=== PATIENT | male | born 1960 | race Caucasian/White ===

== ENCOUNTER → 2017-02-18 | Outpatient (CLI) | payer MEDICAID ==
[2017-02-11 20:31] VITALS: BP 159/71
[2017-02-18 20:12] LABS: BILIRUBIN,URINE NEGATIVE (NEGATIVE); BLOOD/HEMOGLOBIN,URINE NEGATIVE (NEGATIVE); GLUCOSE, URINE NEGATIVE (NEGATIVE); KETONES,URINE NEGATIVE (NEGATIVE); LEUKOCYTE ESTERASE ,URINE 3+ (NEGATIVE); NITRITES,URINE NEGATIVE (NEGATIVE); PROTEIN,URINE 2+ (NEGATIVE); UROBILINOGEN,URINE NORMAL (NORMAL)
[2017-02-18 20:18] LABS: APPEARANCE,URINE HAZY (CLEAR); BACTERIA,URINE 1+ /HPF (NEGATIVE); COLOR,URINE YELLOW (YELLOW); RBC,URINE 0-2 /HPF (NEGATIVE); SQUAMOUS EPITHELIAL CELL,UR RARE /HPF (NEGATIVE)
[2017-02-18 20:25] LABS: CREATININE,URINE 67.27 mg/dL (40-278)
[2017-02-18 20:27] LABS: MICROALBUM/CREATININE RATIO,UR 320 mg/g cre (0-29); MICROALBUMIN,URINE 215.4 mg/L
== END ==
LOC: LTCLAB 19:47
PROVIDERS: ATTEND Internal Medicine
DX: N39.0 Urinary tract infection, site not specified (principal); R82.91 Other chromoabnormalities of urine; B96.5 Pseudomonas (aeruginosa) (mallei) (pseudomallei) as the cause of diseases classified elsewhere
CPT/HCPCS: 81001; 82043; 87086; 87088; 87186

== ENCOUNTER 2017-09-10 10:48 | Inpatient (IN) | payer MEDICAID ==
[2017-09-10 14:50] VITALS: BMI 38.0
[2017-09-10] MEDS ORDERED: NORCO 5/325 MG TAB PO PRN (15:06)
--- NOTE | 2017-09-10 15:17 | DR.H&P ---
H&P - History & Physical for Day of: H&P Date: 09/10/17 - Chief Complaint Chief Complaint: cough, sob, increased lower extremity edema - Allergies Allergies/Adverse Reactions: Allergies Allergy/AdvReac Type Severity Reaction Status Date / Time No Known Drug Allergies Allergy Verified 09/10/17 14:55 [NKDA] - History of Present Illness History of Present Illness: patient is a 57-year-old white male a direct admit from [facility] with complaints of increased shortness of breath cough and wheezing and severe lower extremity pitting edema. Pt had labs as well as chest x-ray prior to admission revealing increased vascular congestion and bronchitis. Patient has a history of diabetes, CHF, COPD, arthritis, renal insufficiency. Plan to admit for further evaluation of shortness of breath bronchitis and CHF exacerbation. We'll obtain admission labs, CT of the chest, ABG, respiratory therapy, IV antibiotics, supplemental O2 and strict I's and O' s will resume patient's home medications as well as blood sugar control. - Past Medical History Past Medical History: CHF, Diabetes, Gout, Hypertension, Renal Disease - Past Surgical History Surgical History: Unknown Additional Surgical History: REMOVAL OF RIGHT KIDNEY - Family History Family Medical History: Diabetes Mellitus, Hypertension - Social History Does patient currently use any type of tobacco product: No Have you used tobacco products in the last 12 months: No Type of Tobacco Use: Cigarettes How many years tobacco product used: 10 Does any household member use tobacco: No Alcohol Use: None Drug Use: None - Medications Home Medications: Brimonidine Tartrate [ALPHAGAN 0.2% (ophth) Soln *] 1 drop AFFEYE TID 09/10/17 [ History Confirmed 09/10/17] Buspirone HCl 10 mg [BUSPAR TAB 10 MG *] 1 tab PO TID 09/10/17 [History Confirmed 09/10/17] Cetirizine HCl [Zyrtec] 1 tab PO HS 09/10/17 [History Confirmed 09/10/17] Emollient [Aquaphor] 1 applic TOP HS 09/10/17 [History Confirmed 09/10/17] Levofloxacin [LEVAQUIN TAB 500 MG *] 1 tab PO DAILY 09/10/17 [History Confirmed 09/10/17] Minoxidil 5 mg PO BID 09/10/17 [History Confirmed 09/10/17] [facility] [Patient's Home Medication] 30 ml PO BID 09/10/17 [History Confirmed 09/10/17] Vitamin B Complex 1 tab PO DAILY 09/10/17 [History Confirmed 09/10/17] - Review of Systems Constitutional: Weakness Eyes: Conjunctivae Inflammation Respiratory: Cough, Shortness of Breath, Wheezing Cardiovascular: Edema Gastrointestinal: No Symptoms Reported Genitourinary: No Symptoms Reported Musculoskeletal: Back Pain, Leg Pain Skin: No Symptoms Reported Neurological: Weakness - Physical Exam Vital Signs: Blood Pressure [Right Arm] 159/71 Blood Pressure [Left Arm] 110/55 Blood Pressure 159/71 Oriented: Normal Eyes: Normal Ear: Normal Nose: Normal Throat: Normal Respiratory: Rhonchi Throughout, RLL Diminished, LLL Diminished Cardiovascular: Normal, Edema : Normal Auscultation: Bowel Sounds: Normal Palpation: Normal Skin: Normal Musculoskeletal: Back:Lumbar, Motor Deficit Affect: Depressed Speech Pattern: Clear, Appropriate - Assessment/Plan (1) SOB (shortness of breath) Status: Acute Plan: admission labs, CT of the chest, ABG, respiratory therapy, IV antibiotics , supplemental O2 and strict I's and O's will resume patient's home medications as well as blood sugar control. (2) Bronchitis Status: Acute (3) CHF (congestive heart failure) Qualifiers: Congestive heart failure type: unspecified congestive heart failure type Congestive heart failure chronicity: chronic Qualified Code(s): I50.9 - Heart failure, unspecified Status: Acute (4) Diabetes mellitus, type 2 Status: Chronic (5) GERD (gastroesophageal reflux disease) Status: Chronic (6) History of seizures Status: Chronic (7) Hypertension Status: Chronic
[2017-09-10 15:38] LABS: ABG BASE EXCESS 9.2 mmol/L (-2.0-2.0)
[2017-09-10 15:39] LABS: ABG HCO3 35.2 mmol/L (22-26)
[2017-09-10 15:39] LABS: BASOPHILS % (AUTO) 0.4 % (0.2-1.0); EOSINOPHILS # (AUTO) 0.4 x10^3/uL (0.0-0.2); EOSINOPHILS % (AUTO) 3.7 % (0.9-2.9); HEMATOCRIT 35.7 % (42.0-54.0); HEMOGLOBIN 11.6 g/dL (13.5-18.0); LYMPHOCYTES % (AUTO) 17.9 % (21.0-51.0); MEAN CORPUSCULAR HEMOGLOBIN 27.4 pg (27.0-34.0); MEAN CORPUSCULAR HGB CONC 32.6 g/dL (33.0-35.0); MEAN CORPUSCULAR VOLUME 84.2 fL (80.0-100.0); MEAN PLATELET VOLUME 7.9 fL (7.4-11.0); MONOCYTES # (AUTO) 0.7 x10^3/uL (0.3-0.8); MONOCYTES % (AUTO) 5.9 % (0.0-13.0); NEUTROPHILS # (AUTO) 8.2 x10^3/uL (2.2-4.8); NEUTROPHILS % (AUTO) 72.1 % (42.0-75.0); PLATELET COUNT 247 X10^3/uL (150.0-450.0); RED BLOOD COUNT 4.23 X10^6/uL (4.7-6.0); WHITE BLOOD COUNT 11.3 X10^3/uL (3.6-10.0)
[2017-09-10 15:41] LABS: BILIRUBIN,URINE NEGATIVE (NEGATIVE); BLOOD/HEMOGLOBIN,URINE 2+ (NEGATIVE); GLUCOSE, URINE 2+ (NEGATIVE); KETONES,URINE NEGATIVE (NEGATIVE); LEUKOCYTE ESTERASE ,URINE 3+ (NEGATIVE); NITRITES,URINE NEGATIVE (NEGATIVE); PROTEIN,URINE 3+ (NEGATIVE); UROBILINOGEN,URINE NORMAL (NORMAL)
[2017-09-10 15:48] LABS: APPEARANCE,URINE HAZY (CLEAR); BACTERIA,URINE 2+ /HPF (NEGATIVE); COLOR,URINE YELLOW (YELLOW); RBC,URINE 0-2 /HPF (NEGATIVE); SQUAMOUS EPITHELIAL CELL,UR NEGATIVE /HPF (NEGATIVE)
[2017-09-10 15:53] LABS: ALBUMIN 2.8 g/dL (3.4-5.0); CALCIUM 8.8 mg/dL (8.5-10.1); CARBON DIOXIDE 33.6 mmol/L (21-32); COR CA(FOR HYPOALB) 9.8 mg/dL (8.5-10.1); CREATININE 1.82 mg/dL (0.70-1.30); TOTAL PROTEIN 7.1 g/dL (6.4-8.2)
[2017-09-10] MEDS: NS 1000 ML 1,000 ML IV SCH (16:02)
[2017-09-10] MEDS: MAXIPIME 2 GM in NS 100 ML IV 100 ML IV SCH ×2 (16:02→21:37)
[2017-09-10] MEDS: DUONEB 0.5 MG/3 MG NEB SCH (16:50)
[2017-09-10] MEDS: COLACE CAP 100 MG PO SCH ×2 (17:34→21:23)
[2017-09-10] MEDS: MILK OF MAGNESIA PO SCH ×2 (17:34→21:19)
[2017-09-10] MEDS: COREG TAB 25 MG PO SCH (21:19)
[2017-09-10] MEDS: APRESOLINE TAB 25 MG PO SCH (21:20)
[2017-09-10] MEDS: MINOXIDIL PO SCH (21:20)
[2017-09-10] MEDS: PEPCID TAB 20 MG PO SCH (21:20)
[2017-09-10] MEDS: BUSPAR PO SCH (21:20)
[2017-09-10] MEDS: MAG-OX TAB PO SCH (21:21)
[2017-09-10] MEDS: LIPITOR TAB 20 MG PO SCH (21:22)
[2017-09-10] MEDS: REQUIP PO SCH (21:28)
[2017-09-10] MEDS: LEVEMIR SC SCH (21:38)
[2017-09-10] MEDS: AQUAPHOR TOP SCH (21:39)
[2017-09-10] MEDS: ALPHAGAN 0.2% OPHTH SOLN AFFEYE SCH (23:35)
[2017-09-11] MEDS: DUONEB 0.5 MG/3 MG NEB SCH ×4 (00:23→16:16)
[2017-09-11 05:29] LABS: BASOPHILS # (AUTO) 0.1 X10^3/uL (0.0-0.1); BASOPHILS % (AUTO) 0.6 % (0.2-1.0); EOSINOPHILS # (AUTO) 0.3 x10^3/uL (0.0-0.2); EOSINOPHILS % (AUTO) 2.9 % (0.9-2.9); HEMATOCRIT 34.9 % (42.0-54.0); HEMOGLOBIN 11.3 g/dL (13.5-18.0); LYMPHOCYTES # (AUTO) 2.2 X10^3/uL (1.3-2.9); LYMPHOCYTES % (AUTO) 20.2 % (21.0-51.0); MEAN CORPUSCULAR HEMOGLOBIN 27.2 pg (27.0-34.0); MEAN CORPUSCULAR HGB CONC 32.4 g/dL (33.0-35.0); MEAN CORPUSCULAR VOLUME 84.1 fL (80.0-100.0); MEAN PLATELET VOLUME 8.2 fL (7.4-11.0); MONOCYTES # (AUTO) 0.7 x10^3/uL (0.3-0.8); NEUTROPHILS # (AUTO) 7.7 x10^3/uL (2.2-4.8); NEUTROPHILS % (AUTO) 70.3 % (42.0-75.0); PLATELET COUNT 254 X10^3/uL (150.0-450.0); RED BLOOD COUNT 4.15 X10^6/uL (4.7-6.0); RED CELL DISTRIBUTION WIDTH 15.1 % (11.6-16.5)
[2017-09-11 05:55] LABS: ALBUMIN 2.6 g/dL (3.4-5.0); CALCIUM 8.5 mg/dL (8.5-10.1); CARBON DIOXIDE 32.4 mmol/L (21-32); COR CA(FOR HYPOALB) 9.6 mg/dL (8.5-10.1); CREATININE 1.71 mg/dL (0.70-1.30); TOTAL PROTEIN 6.6 g/dL (6.4-8.2)
[2017-09-11] MEDS: ALPHAGAN 0.2% OPHTH SOLN AFFEYE SCH ×3 (06:20→20:59)
[2017-09-11] MEDS: APRESOLINE TAB 25 MG PO SCH ×3 (06:22→20:59)
[2017-09-11] MEDS: BUSPAR PO SCH ×3 (06:22→20:59)
[2017-09-11] MEDS: MILK OF MAGNESIA PO SCH ×4 (09:26→20:43)
[2017-09-11] MEDS: REQUIP PO SCH ×2 (09:27→20:45)
[2017-09-11] MEDS: MINOXIDIL PO SCH ×2 (09:27→20:46)
[2017-09-11] MEDS: MAG-OX TAB PO SCH ×2 (09:28→20:43)
[2017-09-11] MEDS: COLACE CAP 100 MG PO SCH ×2 (09:28→21:00)
[2017-09-11] MEDS: PEPCID TAB 20 MG PO SCH ×2 (09:28→20:52)
[2017-09-11] MEDS: COREG TAB 25 MG PO SCH ×2 (09:28→20:43)
[2017-09-11] MEDS: CARDIZEM CD 360 MG PO SCH (09:30)
[2017-09-11] MEDS: LEVEMIR SC SCH ×2 (09:36→20:47)
[2017-09-11] MEDS: MAXIPIME 2 GM in NS 100 ML IV 100 ML IV SCH ×2 (10:19→21:41)
--- NOTE | 2017-09-11 14:19 | CT ---
Indication: Shortness of breath . Exam: CT chest without contrast. Comparison: 03/09/2016 Technique: Axial spiral images were obtained from the level above the clavicles through the adrenals without contrast and reconstructed in 5 mm intervals with coronal and sagittal multiplanar reconstruc tions. Automated does control was utilized. Findings: The thyroid gland is mildly enlarged with a hypodensity in the left lobe measuring 3.8 cm. This measured 1.7 cm previously and is causing some mild mass effect along the left side of the trach ea which is unchanged. The aorta is normal caliber. The pulmonary arteries are prominent centrally ar e more prominent . There are small lymph nodes in the AP window and pretracheal region which are less prominent. There is a 2.3 cm right subcarinal lymph node which measures which measured 2.8 cm previo usly. There are some small lymph nodes along the hilar regions bilaterally which are not as well visu alized but appear slightly less prominent . There is mild asymmetric elevation of the right hemidiaph ragm which is unchanged. There is some hazy right basilar opacity which is less prominent . The adren als are normal. There is a hypodense cyst along the upper pole left kidney measuring 5.4 cm which jewel sures water density. The right kidney has been removed. The adrenals are normal. There is a 5 mm subp leural nodule left lower lobe on image 40 of series 4 which is unchanged. There is a 2 mm pleural-bas ed nodule right upper lobe anteriorly which is less prominent . There are a couple of small 4-5 mm no dules in the right middle lobe which are unchanged or better visualized . There is mild pleural thick ening seen laterally and along the right chest which is unchanged. The bones are intact. Impression: Enlarging left thyroid nodule or mass. Recommend ultrasound follow-up. Prominent asymmetric elevation of the right hemidiaphragm with resolving subsegmental infiltrate or a telectasis vs residual scarring scattered along the right lung base with mild pleural thickening late rally which is unchanged . There has been interval resolution of the previously seen left basilar inf iltrate and effusion. Small pulmonary nodules scattered in both lungs which are unchanged or better visualized . Recommend short-term follow-up to assure stability . Slowly resolving mediastinal and hilar adenopathy . Prominent central pulmonary arteries which has increased and may represent worsening pulmonary artery hypertension Reported By:
[2017-09-11] MEDS: NS 1000 ML 1,000 ML IV SCH (15:00)
[2017-09-11] MEDS: LIPITOR TAB 20 MG PO SCH (20:43)
[2017-09-11] MEDS: AQUAPHOR TOP SCH (20:54)
[2017-09-11] MEDS ORDERED: NS 100 ML IV 100 ML IV ONE (21:36)
[2017-09-12] MEDS: DUONEB 0.5 MG/3 MG NEB SCH ×4 (01:09→13:39)
[2017-09-12] MEDS: APRESOLINE TAB 25 MG PO SCH ×2 (05:38→14:06)
[2017-09-12] MEDS: BUSPAR PO SCH ×2 (05:38→14:06)
[2017-09-12] MEDS: ALPHAGAN 0.2% OPHTH SOLN AFFEYE SCH ×2 (05:39→14:12)
[2017-09-12 06:18] LABS: BASOPHILS # (AUTO) 0.1 X10^3/uL (0.0-0.1); BASOPHILS % (AUTO) 0.8 % (0.2-1.0); EOSINOPHILS # (AUTO) 0.3 x10^3/uL (0.0-0.2); HEMATOCRIT 33.7 % (42.0-54.0); HEMOGLOBIN 11.1 g/dL (13.5-18.0); LYMPHOCYTES # (AUTO) 2.1 X10^3/uL (1.3-2.9); LYMPHOCYTES % (AUTO) 19.2 % (21.0-51.0); MEAN CORPUSCULAR HEMOGLOBIN 27.7 pg (27.0-34.0); MEAN CORPUSCULAR HGB CONC 32.9 g/dL (33.0-35.0); MONOCYTES # (AUTO) 0.6 x10^3/uL (0.3-0.8); MONOCYTES % (AUTO) 5.7 % (0.0-13.0); NEUTROPHILS # (AUTO) 7.8 x10^3/uL (2.2-4.8); NEUTROPHILS % (AUTO) 71.3 % (42.0-75.0); PLATELET COUNT 237 X10^3/uL (150.0-450.0); RED BLOOD COUNT 4.01 X10^6/uL (4.7-6.0); RED CELL DISTRIBUTION WIDTH 15.1 % (11.6-16.5)
[2017-09-12 06:41] LABS: ALBUMIN 2.4 g/dL (3.4-5.0); CALCIUM 8.2 mg/dL (8.5-10.1); CARBON DIOXIDE 31.6 mmol/L (21-32); COR CA(FOR HYPOALB) 9.5 mg/dL (8.5-10.1); CREATININE 1.65 mg/dL (0.70-1.30); TOTAL PROTEIN 6.4 g/dL (6.4-8.2)
[2017-09-12] MEDS: MILK OF MAGNESIA PO SCH ×2 (09:24→09:34)
[2017-09-12] MEDS: COREG TAB 25 MG PO SCH (09:24)
[2017-09-12] MEDS: CARDIZEM CD 360 MG PO SCH (09:25)
[2017-09-12] MEDS: PEPCID TAB 20 MG PO SCH (09:27)
[2017-09-12] MEDS: MINOXIDIL PO SCH (09:27)
[2017-09-12] MEDS: REQUIP PO SCH (09:28)
[2017-09-12] MEDS: COLACE CAP 100 MG PO SCH (09:28)
[2017-09-12] MEDS: MAG-OX TAB PO SCH (09:28)
[2017-09-12] MEDS: LEVEMIR SC SCH (09:29)
[2017-09-12] MEDS: MAXIPIME 2 GM in NS 100 ML IV 100 ML IV SCH (11:06)
[2017-09-12] MEDS: NS 1000 ML 1,000 ML IV SCH (11:10)
[2017-09-12] MEDS ORDERED: INVANZ INJ 1 GM VIAL 1 GM in NS 50 ML IV 50 ML IV ONE (14:13)
[2017-09-12] MEDS ORDERED: INVANZ INJ 1 GM VIAL ONE (14:15)
[2017-09-12] MEDS ORDERED: NS 100 ML IV 100 ML IV ONE (14:16)
[2017-09-12 17:49] VITALS: BP 156/74
== END 2017-09-12 16:30 | DRG 202 ==
LOC: UNDOADMOB 10:48 → MED/SURG 10:48 → OBSVTOIN 13:13 → INTOOBSV 13:13 → MED/SURG 13:13
PROVIDERS: ADMIT Internal Medicine; ATTEND Internal Medicine
DX: J20.8 Acute bronchitis due to other specified organisms (principal); R06.02 Shortness of breath; I50.9 Heart failure, unspecified; R60.0 Localized edema; E11.65 Type 2 diabetes mellitus with hyperglycemia; J44.9 Chronic obstructive pulmonary disease, unspecified; I10 Essential (primary) hypertension; G40.802 Other epilepsy, not intractable, without status epilepticus; N18.9 Chronic kidney disease, unspecified; B96.29 Other Escherichia coli [E. coli] as the cause of diseases classified elsewhere
CPT/HCPCS: 36415; 36600; 71010; 71020; 71250; 80053; 81001; 82803; 84153; 85025; 87040; 87086; 87088; 87186; 93005; 93010; 94640; 96360; 96365; 96372; 96374; A4222; 1956; G0378; J0692; J1335; J7620

== ENCOUNTER 2017-12-27 11:44 | Inpatient (IN) | payer MEDICAID ==
[2017-12-27] MEDS ORDERED: ROBITUSSIN DM PO PRN (13:12)
[2017-12-27] MEDS ORDERED: HumuLIN R SUBCUT PRN (13:12)
--- NOTE | 2017-12-27 13:17 | DR.H&P ---
H&P - History & Physical for Day of: H&P Date: 12/27/17 - Chief Complaint Chief Complaint: SOB,CCC, WHEEZING - Allergies Allergies/Adverse Reactions: Allergies Allergy/AdvReac Type Severity Reaction Status Date / Time No Known Drug Allergies Allergy Verified 12/18/17 09:13 [NKDA] - History of Present Illness History of Present Illness: 57 WM DIRECT ADMIT FROM [facility] WITH CO SOB, ACUTE BRONCHITIS AND UTI. PT HAS BEEN ON IV ATBX FOR A WEEK. PT USING JET NEBS AND SUPPLEMENTAL O2 WITHOUT IMPROVEMENT. PT HAS CRF, DM, HTN, OA, CHRONIC UTIS. PT ADMITTED FOR EVALAUTION OF SOB AND TREATMENT OF BRONCHITIS AND UTI. PLAN TO FOLLOW PNEUMONIA PATHWAY, RESUME HOME MEDS - Past Medical History Past Medical History: Arthritis, CHF, Diabetes, Gout, Hypertension, Renal Disease - Past Surgical History Surgical History: Unknown Additional Surgical History: REMOVAL OF RIGHT KIDNEY - Family History Family Medical History: Diabetes Mellitus, Hypertension - Social History Does patient currently use any type of tobacco product: No Have you used tobacco products in the last 12 months: No Type of Tobacco Use: None Does any household member use tobacco: No Alcohol Use: None Drug Use: None - Review of Systems Constitutional: Weakness Eyes: No Symptoms Reported Respiratory: Cough, Shortness of Breath, Wheezing Cardiovascular: No Symptoms Reported, Edema Gastrointestinal: No Symptoms Reported Genitourinary: Frequency Musculoskeletal: Back Pain, Leg Pain Skin: No Symptoms Reported Neurological: Weakness - Physical Exam Vital Signs: Blood Pressure [Right Arm] 156/74 Blood Pressure [Left Arm] 110/55 Blood Pressure 156/74 Oriented: Person Eyes: Normal Ear: Normal Nose: Normal Throat: Normal Respiratory: Rhonchi Throughout, Wheezes Throughout Cardiovascular: Normal, Edema : Normal Auscultation: Bowel Sounds: Normal Palpation: Normal Skin: Normal Musculoskeletal: Back:Lumbar, Motor Deficit Psychiatric: Anxiety, Depression Affect: Depressed Speech Pattern: Clear, Appropriate - Assessment/Plan (1) SOB (shortness of breath) Status: Acute Plan: ADMIT, EKG CXR ABG ON ADMISSION. SSI BS COVERAGE. O2, RESP CONSULT, PNEUMONIA PATHWAY. BLOOD, URINE AND SPUTUM CULTURES. IV ATBX THERAPY, RESUME HOME MEDS. BP MONITORING, I & OS (2) Bronchitis Status: Acute (3) CRF (chronic renal failure) Status: Acute (4) CHF (congestive heart failure) Qualifiers: Qualified Code(s): I50.9 - Heart failure, unspecified Status: Acute (5) Generalized weakness Status: Acute (6) Diabetes mellitus, type 2 Status: Chronic (7) GERD (gastroesophageal reflux disease) Status: Chronic (8) Hypertension Status: Chronic
[2017-12-27] MEDS ORDERED: NS 1/2 1000 ML IV 1,000 ML IV ONE (13:54)
[2017-12-27] MEDS ORDERED: NS 1/2 1000 ML IV 1,000 ML IV SCH (14:00)
[2017-12-27 14:39] LABS: ABG BASE EXCESS 12.1 mmol/L (-2.0-2.0)
[2017-12-27 14:40] LABS: ABG ALLEN TEST POS
[2017-12-27] MEDS ORDERED: SALINE 3% 15 ML NEB TX NEB ONE (14:47)
--- NOTE | 2017-12-27 14:53 | RAD ---
Chest, AP portable Indication: Shortness of breath Comparison: 09/14/2017 Findings: Cardiac silhouette enlargement is unchanged. There are diffuse asymmetric interstitial and airspace opacities, most severe within left upper lobe. No large pleural effusion. Impression: Findings most compatible with multifocal pneumonia, worst in the left upper lobe, although asymmetric edema is possible in the correct clinical setting. Correlation and radiographic follow-up to resolut ion recommended. Reported By:
[2017-12-27 15:25] LABS: BASOPHILS # (AUTO) 0.1 X10^3/uL (0.0-0.1); EOSINOPHILS # (AUTO) 0.4 x10^3/uL (0.0-0.2); EOSINOPHILS % (AUTO) 3.6 % (0.9-2.9); HEMATOCRIT 35.1 % (42.0-54.0); HEMOGLOBIN 11.3 g/dL (13.5-18.0); LYMPHOCYTES # (AUTO) 1.5 X10^3/uL (1.3-2.9); LYMPHOCYTES % (AUTO) 14.8 % (21.0-51.0); MEAN CORPUSCULAR HEMOGLOBIN 27.1 pg (27.0-34.0); MEAN CORPUSCULAR HGB CONC 32.2 g/dL (33.0-35.0); MEAN CORPUSCULAR VOLUME 84.1 fL (80.0-100.0); MEAN PLATELET VOLUME 7.3 fL (7.4-11.0); MONOCYTES # (AUTO) 0.7 x10^3/uL (0.3-0.8); NEUTROPHILS # (AUTO) 7.3 x10^3/uL (2.2-4.8); NEUTROPHILS % (AUTO) 73.6 % (42.0-75.0); PLATELET COUNT 247 X10^3/uL (150.0-450.0); RED BLOOD COUNT 4.17 X10^6/uL (4.7-6.0); RED CELL DISTRIBUTION WIDTH 15.4 % (11.6-16.5)
[2017-12-27] MEDS: MERREM VIAL 1 GM in NS 100 ML IV + SPIKE MINIBAG* 100 ML IV SCH ×2 (15:27→21:00)
[2017-12-27 15:33] LABS: BLOOD UREA NITROGEN 31 mg/dL (7-18); CALCIUM 8.8 mg/dL (8.5-10.1); CHLORIDE 107 mmol/L (98-107); CREATININE 1.89 mg/dL (0.70-1.30); SODIUM 146 mmol/L (136-145); eGFR BLACK RACES 47 (>60); eGFR NON BLACK RACES 39 (>60)
[2017-12-27 15:35] LABS: ALANINE AMINOTRANSFERASE 11 Units/L (12-78); ALBUMIN 2.9 g/dL (3.4-5.0); ALKALINE PHOSPHATASE 144 Units/L (46-116); ASPARTATE AMINO TRANSFERASE 17 Units/L (15-37); COR CA(FOR HYPOALB) 9.7 mg/dL (8.5-10.1); TOTAL PROTEIN 7.7 g/dL (6.4-8.2)
[2017-12-27] MEDS ORDERED: D50W ABBOJECT SYR ONE (15:42)
[2017-12-27] MEDS ORDERED: D50W ABBOJECT SYR IV ONE (15:43)
[2017-12-27] MEDS: ZITHROMAX INJ 500 MG VIAL 500 MG in NS 250 ML IV 250 ML IV SCH (16:14)
[2017-12-27] MEDS ORDERED: DUONEB 0.5 MG/3 MG NEB SCH (17:00)
[2017-12-27] MEDS ORDERED: LASIX IVP ONE (17:52)
[2017-12-27] MEDS: D5 1/2 NS 1000 ML 1,000 ML IV SCH (18:20)
[2017-12-27] MEDS: DUONEB 0.5 MG/3 MG NEB SCH (20:57)
[2017-12-27] MEDS: SNACK - Diabetic Appropriate PO SCH (21:00)
[2017-12-27 21:21] LABS: BILIRUBIN,URINE NEGATIVE (NEGATIVE); BLOOD/HEMOGLOBIN,URINE NEGATIVE (NEGATIVE); GLUCOSE, URINE NEGATIVE (NEGATIVE); KETONES,URINE NEGATIVE (NEGATIVE); LEUKOCYTE ESTERASE ,URINE 3+ (NEGATIVE); NITRITES,URINE NEGATIVE (NEGATIVE); PROTEIN,URINE 3+ (NEGATIVE); UROBILINOGEN,URINE NORMAL (NORMAL)
[2017-12-27 21:22] LABS: APPEARANCE,URINE HAZY (CLEAR); COLOR,URINE YELLOW (YELLOW)
[2017-12-27 21:31] LABS: BACTERIA,URINE TRACE /HPF (NEGATIVE); MUCUS,URINE FEW /HPF (NEGATIVE); SQUAMOUS EPITHELIAL CELL,UR RARE /HPF (NEGATIVE)
[2017-12-28] MEDS: DUONEB 0.5 MG/3 MG NEB SCH ×6 (01:13→20:14)
[2017-12-28] MEDS: MERREM VIAL 1 GM in NS 100 ML IV + SPIKE MINIBAG* 100 ML IV SCH ×3 (05:16→20:59)
[2017-12-28 06:00] LABS: BASOPHILS # (AUTO) 0.1 X10^3/uL (0.0-0.1); BASOPHILS % (AUTO) 0.9 % (0.2-1.0); EOSINOPHILS # (AUTO) 0.3 x10^3/uL (0.0-0.2); EOSINOPHILS % (AUTO) 2.4 % (0.9-2.9); HEMATOCRIT 34.9 % (42.0-54.0); HEMOGLOBIN 11.1 g/dL (13.5-18.0); LYMPHOCYTES # (AUTO) 1.7 X10^3/uL (1.3-2.9); LYMPHOCYTES % (AUTO) 14.2 % (21.0-51.0); MEAN CORPUSCULAR HEMOGLOBIN 27.1 pg (27.0-34.0); MEAN CORPUSCULAR VOLUME 84.7 fL (80.0-100.0); MEAN PLATELET VOLUME 7.7 fL (7.4-11.0); MONOCYTES # (AUTO) 0.8 x10^3/uL (0.3-0.8); MONOCYTES % (AUTO) 6.6 % (0.0-13.0); NEUTROPHILS # (AUTO) 9.1 x10^3/uL (2.2-4.8); NEUTROPHILS % (AUTO) 75.9 % (42.0-75.0); PLATELET COUNT 259 X10^3/uL (150.0-450.0); RED BLOOD COUNT 4.12 X10^6/uL (4.7-6.0); RED CELL DISTRIBUTION WIDTH 15.5 % (11.6-16.5)
[2017-12-28 06:40] LABS: ALBUMIN 2.8 g/dL (3.4-5.0); CALCIUM 8.7 mg/dL (8.5-10.1); CARBON DIOXIDE 32.7 mmol/L (21-32); COR CA(FOR HYPOALB) 9.7 mg/dL (8.5-10.1); CREATININE 2.03 mg/dL (0.70-1.30); TOTAL PROTEIN 7.5 g/dL (6.4-8.2)
[2017-12-28] MEDS: ZITHROMAX INJ 500 MG VIAL 500 MG in NS 250 ML IV 250 ML IV SCH (08:18)
[2017-12-28] MEDS ORDERED: NS 100 ML IV + SPIKE MINIBAG* 0 ML IV ONE (13:18)
[2017-12-28] MEDS ORDERED: MERREM VIAL ONE ×2 (13:19→20:37)
[2017-12-28] MEDS ORDERED: NS 100 ML IV 100 ML IV ONE ×2 (13:19→20:37)
--- NOTE | 2017-12-28 14:33 | PCM.PROG ---
Progress Note - Progress Note for Day of Date: 12/28/17 - Subjective Subjective: PT 57 WM RESIDENT FOR [facility] ADMITTED ONE DAY AGO WITH SOB, PT CXR REVEALED MULTI-FOCAL PNEUMONIA. PT CONTINUE TO CO NAUSEA THIS AM. PT ON IV ATBX, RESP THERAPY, O2, PT ENCOURAGED TO PRODUCE AND SPUTUM SPECIMEN. - Past Medical Family Social History Past Med/Fam/Surg Hx: No changes since H&P Allergies: Allergies No Known Drug Allergies [NKDA] Allergy (Verified 12/18/17 09:13) - Review of Systems ROS: No change since H&P - Vital Signs and I&O's Vital Signs: Temperature 98.9 F Pulse Rate [Apical] 76 Pulse Rate 64 Respiratory Rate 20 Blood Pressure [Right Arm] 128/68 Blood Pressure [Left Arm] 110/55 Blood Pressure 156/74 O2 Sat by Pulse Oximetry 95 Intake and Output: Intake & Output 12/26/17 12/27/17 12/28/17 12/29/17 11:59 11:59 11:59 11:59 Intake Total 780 Output Total 1740 Balance -960 - Physical Exam Oriented: Person Eyes: Normal Ear: Normal Nose: Normal Throat: Normal Cardiovascular: Normal, Edema : Normal Auscultation: Bowel Sounds: Normal Palpation: Normal Tenderness: Normal Skin: Normal Musculoskeletal: Back:Lumbar, Motor Deficit Psychiatric: Anxiety, Depression Affect: Depressed Speech Pattern: Clear, Appropriate - Laboratory and Diagnostics Result Diagrams: 12/28/17 04:55 12/28/17 04:55 Labs: 12/27/17 21:10 Urine,Clean Catch Urine Culture - Preliminary Laboratory WBC 12.0 X10^3/uL (3.6-10.0) H 12/28/17 04:55 RBC 4.12 X10^6/uL (4.7-6.0) L 12/28/17 04:55 Hgb 11.1 g/dL (13.5-18.0) L 12/28/17 04:55 Hct 34.9 % (42.0-54.0) L 12/28/17 04:55 MCV 84.7 fL (80.0-100.0) 12/28/17 04:55 MCH 27.1 pg (27.0-34.0) 12/28/17 04:55 MCHC 32.0 g/dL (33.0-35.0) L 12/28/17 04:55 RDW 15.5 % (11.6-16.5) 12/28/17 04:55 Plt Count 259 X10^3/uL (150.0-450.0) 12/28/17 04:55 MPV 7.7 fL (7.4-11.0) 12/28/17 04:55 Neut % (Auto) 75.9 % (42.0-75.0) H 12/28/17 04:55 Lymph % (Auto) 14.2 % (21.0-51.0) L 12/28/17 04:55 Bennett % (Auto) 6.6 % (0.0-13.0) 12/28/17 04:55 Eos % (Auto) 2.4 % (0.9-2.9) 12/28/17 04:55 Baso % (Auto) 0.9 % (0.2-1.0) 12/28/17 04:55 Neut # (Auto) 9.1 x10^3/uL (2.2-4.8) H 12/28/17 04:55 Lymph # (Auto) 1.7 X10^3/uL (1.3-2.9) 12/28/17 04:55 Bennett # (Auto) 0.8 x10^3/uL (0.3-0.8) 12/28/17 04:55 Eos # (Auto) 0.3 x10^3/uL (0.0-0.2) H 12/28/17 04:55 Baso # (Auto) 0.1 X10^3/uL (0.0-0.1) 12/28/17 04:55 Absolute Nucleated RBC 0.0 /100WBC 12/28/17 04:55 Sample Site Right radial 12/27/17 14:27 ABG pH 7.340 (7.35-7.45) L 12/27/17 14:27 ABG pCO2 76.0 mmHg (35.0-45.0) H* 12/27/17 14:27 ABG pO2 85.0 mmHg (80.0-100.0) 12/27/17 14:27 ABG HCO3 41.0 mmol/L (22-26) H* 12/27/17 14:27 ABG O2 Saturation 96.0 % (90-100) 12/27/17 14:27 ABG Base Excess 12.1 mmol/L (-2.0-2.0) H 12/27/17 14:27 Ishmael Test Pos 12/27/17 14:27 A-a Gradient 20.0 mmHg 12/27/17 14:27 FiO2 28.000 12/27/17 14:27 Blood Gas Comments Michelle well aw 12/27/17 14:27 Sodium 145 mmol/L (136-145) 12/28/17 04:55 Corrected Sodium 145 mmol/L (136-145) 12/28/17 04:55 Potassium 4.2 mmol/L (3.5-5.1) 12/28/17 04:55 Chloride 106 mmol/L (98-107) 12/28/17 04:55 Carbon Dioxide 32.7 mmol/L (21-32) H 12/28/17 04:55 BUN 34 mg/dL (7-18) H 12/28/17 04:55 Creatinine 2.03 mg/dL (0.70-1.30) H 12/28/17 04:55 Est GFR (MDRD) Af Amer 43 (>60) L 12/28/17 04:55 Est GFR (MDRD) Non-Af 36 (>60) L 12/28/17 04:55 Glucose 117 mg/dL (65-99) H 12/28/17 04:55 POC Glucose (mg/dL) 167 mg/dL (65-99) H 12/28/17 11:19 Calcium 8.7 mg/dL (8.5-10.1) 12/28/17 04:55 Corrected Calcium 9.7 mg/dL (8.5-10.1) 12/28/17 04:55 Total Bilirubin 0.40 mg/dL (0.2-1.0) 12/28/17 04:55 AST 15 Units/L (15-37) 12/28/17 04:55 ALT 19 Units/L (12-78) 12/28/17 04:55 Alkaline Phosphatase 139 Units/L (46-116) H 12/28/17 04:55 Total Protein 7.5 g/dL (6.4-8.2) 12/28/17 04:55 Albumin 2.8 g/dL (3.4-5.0) L 12/28/17 04:55 Globulin 4.7 g/dL (2.5-4.5) H 12/28/17 04:55 Albumin/Globulin Ratio 0.6 Ratio (1.1-2.1) L 12/28/17 04:55 Specimen Type Clean catch urine 12/27/17 21:10 Urine Color Yellow (YELLOW) 12/27/17 21:10 Urine Appearance Hazy (CLEAR) 12/27/17 21:10 Urine pH 5.0 (5.0 - 8.0) 12/27/17 21:10 Ur Specific [place] 1.010 (1.000-1.030) 12/27/17 21:10 Urine Protein 3+ (NEGATIVE) 12/27/17 21:10 Urine Glucose (UA) Negative (NEGATIVE) 12/27/17 21:10 Urine Ketones Negative (NEGATIVE) 12/27/17 21:10 Urine Occult Blood Negative (NEGATIVE) 12/27/17 21:10 Urine Nitrite Negative (NEGATIVE) 12/27/17 21:10 Urine Bilirubin Negative (NEGATIVE) 12/27/17 21:10 Urine Urobilinogen Normal (NORMAL) 12/27/17 21:10 Ur Leukocyte Esterase 3+ (NEGATIVE) 12/27/17 21:10 Urine RBC 3-5 /HPF (NONE SEEN) 12/27/17 21:10 Urine WBC 20-30 /HPF (NONE SEEN) 12/27/17 21:10 Ur Squamous Epith Cells Rare /HPF (NEGATIVE) 12/27/17 21:10 Urine Bacteria Trace /HPF (NEGATIVE) 12/27/17 21:10 Urine Mucus Few /HPF (NEGATIVE) 12/27/17 21:10 Ur Culture Indicated? Yes/culture set up 12/27/17 21:10 - Plan (1) SOB (shortness of breath) Status: Acute Plan: EKG CXR ABG ON ADMISSION,. SSI BS COVERAGE. O2, RESP CONSULT, PNEUMONIA PATHWAY. BLOOD, URINE AND SPUTUM CULTURES PENDING. IV ATBX THERAPY,. BP MONITORING, I & OS (2) Bronchitis Status: Acute (3) CRF (chronic renal failure) Status: Acute (4) CHF (congestive heart failure) Status: Acute Qualifiers: Qualified Code(s): I50.9 - Heart failure, unspecified (5) Generalized weakness Status: Acute (6) Diabetes mellitus, type 2 Status: Chronic (7) GERD (gastroesophageal reflux disease) Status: Chronic (8) Hypertension Status: Chronic
[2017-12-28] MEDS: D5 1/2 NS 1000 ML 1,000 ML IV SCH (20:51)
[2017-12-28] MEDS: SNACK - Diabetic Appropriate PO SCH (20:51)
[2017-12-28] MEDS: NYSTATIN POWDER TOP PRN (23:00)
[2017-12-29] MEDS: DUONEB 0.5 MG/3 MG NEB SCH ×6 (01:39→20:25)
[2017-12-29] MEDS ORDERED: MERREM VIAL ONE (05:35)
[2017-12-29] MEDS ORDERED: NS 100 ML IV 100 ML IV ONE (05:35)
[2017-12-29] MEDS: MERREM VIAL 1 GM in NS 100 ML IV + SPIKE MINIBAG* 100 ML IV SCH ×3 (05:40→21:24)
[2017-12-29 05:53] LABS: ABG BASE EXCESS 10.8 mmol/L (-2.0-2.0)
[2017-12-29 05:55] LABS: ABG ALLEN TEST POS; ABG HCO3 39.2 mmol/L (22-26)
[2017-12-29 06:03] LABS: BASOPHILS # (AUTO) 0.1 X10^3/uL (0.0-0.1); BASOPHILS % (AUTO) 0.8 % (0.2-1.0); EOSINOPHILS # (AUTO) 0.2 x10^3/uL (0.0-0.2); EOSINOPHILS % (AUTO) 2.4 % (0.9-2.9); HEMATOCRIT 34.8 % (42.0-54.0); HEMOGLOBIN 11.3 g/dL (13.5-18.0); LYMPHOCYTES # (AUTO) 2.1 X10^3/uL (1.3-2.9); LYMPHOCYTES % (AUTO) 20.4 % (21.0-51.0); MEAN CORPUSCULAR HEMOGLOBIN 27.3 pg (27.0-34.0); MEAN CORPUSCULAR HGB CONC 32.4 g/dL (33.0-35.0); MEAN CORPUSCULAR VOLUME 84.2 fL (80.0-100.0); MEAN PLATELET VOLUME 7.7 fL (7.4-11.0); MONOCYTES # (AUTO) 0.7 x10^3/uL (0.3-0.8); MONOCYTES % (AUTO) 6.9 % (0.0-13.0); NEUTROPHILS # (AUTO) 7.1 x10^3/uL (2.2-4.8); NEUTROPHILS % (AUTO) 69.5 % (42.0-75.0); PLATELET COUNT 242 X10^3/uL (150.0-450.0); RED BLOOD COUNT 4.13 X10^6/uL (4.7-6.0); RED CELL DISTRIBUTION WIDTH 15.1 % (11.6-16.5); WHITE BLOOD COUNT 10.2 X10^3/uL (3.6-10.0)
[2017-12-29 06:36] LABS: CREATININE 1.7 mg/dL (0.70-1.30)
[2017-12-29] MEDS: ZITHROMAX INJ 500 MG VIAL 500 MG in NS 250 ML IV 250 ML IV SCH (07:59)
[2017-12-29] MEDS ORDERED: ZOFRAN INJ 4 MG VIAL IVP PRN (08:52)
[2017-12-29 10:53] VITALS: BMI 40.2
[2017-12-29 12:20] LABS: ALBUMIN 2.7 g/dL (3.4-5.0); TOTAL PROTEIN 7.5 g/dL (6.4-8.2)
--- NOTE | 2017-12-29 13:39 | PCM.PROG ---
Progress Note - Progress Note for Day of Date: 12/29/17 - Subjective Subjective: PT 57 WM RESIDENT FOR [facility] ADMITTED ONE DAY AGO WITH SOB, PT CXR REVEALED MULTI-FOCAL PNEUMONIA. PT HAS IMPROVING RESP DISTRESS, RESTING THIS AM, IMPROVING APPETITE. CO CONTINUED CHEST CONGESTION AND COUGH THIS AM. PT ON IV ATBX, RESP THERAPY, O2, PT ENCOURAGED TO PRODUCE AND SPUTUM SPECIMEN. - Past Medical Family Social History Past Med/Fam/Surg Hx: No changes since H&P Allergies: Allergies No Known Drug Allergies [NKDA] Allergy (Verified 12/18/17 09:13) - Review of Systems ROS: No change since H&P - Vital Signs and I&O's Vital Signs: Temperature 99.0 F Pulse Rate [Apical] 78 Pulse Rate 61 Respiratory Rate 19 Blood Pressure [Right Arm] 156/67 Blood Pressure [Left Arm] 110/55 Blood Pressure 156/74 O2 Sat by Pulse Oximetry 96 Intake and Output: Intake & Output 12/27/17 12/28/17 12/29/17 12/30/17 11:59 11:59 11:59 11:59 Intake Total 780 1760 Output Total 1740 1275 Balance -960 485 - Physical Exam Oriented: Person Eyes: Normal Ear: Normal Nose: Normal Throat: Normal Respiratory: Wheezes, Rhonchi Cardiovascular: Normal, Edema : Normal Auscultation: Bowel Sounds: Normal Tenderness: Normal Skin: Normal Musculoskeletal: Back:Lumbar, Motor Deficit Psychiatric: Anxiety, Depression Affect: Depressed Speech Pattern: Clear, Appropriate - Laboratory and Diagnostics Result Diagrams: 12/29/17 04:45 12/29/17 04:45 Labs: 12/27/17 21:10 Urine,Clean Catch Urine Culture - Preliminary 12/27/17 15:00 Blood Blood Culture - Preliminary 12/27/17 15:04 Blood Blood Culture - Preliminary Laboratory WBC 10.2 X10^3/uL (3.6-10.0) H 12/29/17 04:45 RBC 4.13 X10^6/uL (4.7-6.0) L 12/29/17 04:45 Hgb 11.3 g/dL (13.5-18.0) L 12/29/17 04:45 Hct 34.8 % (42.0-54.0) L 12/29/17 04:45 MCV 84.2 fL (80.0-100.0) 12/29/17 04:45 MCH 27.3 pg (27.0-34.0) 12/29/17 04:45 MCHC 32.4 g/dL (33.0-35.0) L 12/29/17 04:45 RDW 15.1 % (11.6-16.5) 12/29/17 04:45 Plt Count 242 X10^3/uL (150.0-450.0) 12/29/17 04:45 MPV 7.7 fL (7.4-11.0) 12/29/17 04:45 Neut % (Auto) 69.5 % (42.0-75.0) 12/29/17 04:45 Lymph % (Auto) 20.4 % (21.0-51.0) L 12/29/17 04:45 [place] % (Auto) 6.9 % (0.0-13.0) 12/29/17 04:45 Eos % (Auto) 2.4 % (0.9-2.9) 12/29/17 04:45 Baso % (Auto) 0.8 % (0.2-1.0) 12/29/17 04:45 Neut # (Auto) 7.1 x10^3/uL (2.2-4.8) H 12/29/17 04:45 Lymph # (Auto) 2.1 X10^3/uL (1.3-2.9) 12/29/17 04:45 [place] # (Auto) 0.7 x10^3/uL (0.3-0.8) 12/29/17 04:45 Eos # (Auto) 0.2 x10^3/uL (0.0-0.2) 12/29/17 04:45 Baso # (Auto) 0.1 X10^3/uL (0.0-0.1) 12/29/17 04:45 Absolute Nucleated RBC 0.0 /100WBC 12/29/17 04:45 Sample Site Rrad 12/29/17 05:45 ABG pH 7.350 (7.35-7.45) 12/29/17 05:45 ABG pCO2 71.0 mmHg (35.0-45.0) H* 12/29/17 05:45 ABG pO2 67.0 mmHg (80.0-100.0) L 12/29/17 05:45 ABG HCO3 39.2 mmol/L (22-26) H* 12/29/17 05:45 ABG O2 Saturation 92.0 % (90-100) 12/29/17 05:45 ABG Base Excess 10.8 mmol/L (-2.0-2.0) H 12/29/17 05:45 Ishmael Test Pos 12/29/17 05:45 A-a Gradient 58.0 mmHg 12/29/17 05:45 FiO2 30.000 12/29/17 05:45 Blood Gas Comments Michelle abg well. 12/29/17 05:45 Sodium 143 mmol/L (136-145) 12/29/17 04:45 Corrected Sodium 143 mmol/L (136-145) 12/29/17 04:45 Potassium 4.5 mmol/L (3.5-5.1) 12/29/17 04:45 Chloride 103 mmol/L (98-107) 12/29/17 04:45 Carbon Dioxide 35.0 mmol/L (21-32) H 12/29/17 04:45 BUN 28 mg/dL (7-18) H 12/29/17 04:45 Creatinine 1.70 mg/dL (0.70-1.30) H 12/29/17 04:45 Est GFR (MDRD) Af Amer 53 (>60) L 12/29/17 04:45 Est GFR (MDRD) Non-Af 44 (>60) L 12/29/17 04:45 Glucose 118 mg/dL (65-99) H 12/29/17 04:45 POC Glucose (mg/dL) 112 mg/dL (65-99) H 12/29/17 12:00 Calcium 9.0 mg/dL (8.5-10.1) 12/29/17 04:45 Corrected Calcium 10.0 mg/dL (8.5-10.1) 12/29/17 04:45 Total Bilirubin 0.20 mg/dL (0.2-1.0) 12/29/17 04:45 AST 25 Units/L (15-37) 12/29/17 04:45 ALT 22 Units/L (12-78) 12/29/17 04:45 Alkaline Phosphatase 136 Units/L (46-116) H 12/29/17 04:45 Total Protein 7.5 g/dL (6.4-8.2) 12/29/17 04:45 Albumin 2.7 g/dL (3.4-5.0) L 12/29/17 04:45 Globulin 4.8 g/dL (2.5-4.5) H 12/29/17 04:45 Albumin/Globulin Ratio 0.6 Ratio (1.1-2.1) L 12/29/17 04:45 Specimen Type Clean catch urine 12/27/17 21:10 Urine Color Yellow (YELLOW) 12/27/17 21:10 Urine Appearance Hazy (CLEAR) 12/27/17 21:10 Urine pH 5.0 (5.0 - 8.0) 12/27/17 21:10 Ur Specific [place] 1.010 (1.000-1.030) 12/27/17 21:10 Urine Protein 3+ (NEGATIVE) 12/27/17 21:10 Urine Glucose (UA) Negative (NEGATIVE) 12/27/17 21:10 Urine Ketones Negative (NEGATIVE) 12/27/17 21:10 Urine Occult Blood Negative (NEGATIVE) 12/27/17 21:10 Urine Nitrite Negative (NEGATIVE) 12/27/17 21:10 Urine Bilirubin Negative (NEGATIVE) 12/27/17 21:10 Urine Urobilinogen Normal (NORMAL) 12/27/17 21:10 Ur Leukocyte Esterase 3+ (NEGATIVE) 12/27/17 21:10 Urine RBC 3-5 /HPF (NONE SEEN) 12/27/17 21:10 Urine WBC 20-30 /HPF (NONE SEEN) 12/27/17 21:10 Ur Squamous Epith Cells Rare /HPF (NEGATIVE) 12/27/17 21:10 Urine Bacteria Trace /HPF (NEGATIVE) 12/27/17 21:10 Urine Mucus Few /HPF (NEGATIVE) 12/27/17 21:10 Ur Culture Indicated? Yes/culture set up 12/27/17 21:10 - Plan (1) Pneumonia Status: Acute Qualifiers: Pneumonia type: due to unspecified organism Laterality: left Lung location: lower lobe of lung Qualified Code(s): J18.9 - Pneumonia, unspecified organism Plan: O2, RESP CONSULT, PNEUMONIA PATHWAY. SMART VEST AND MUCOMYST, PULMONARY TOILETING (2) SOB (shortness of breath) Status: Acute Plan: EKG CXR ABG ON ADMISSION,. SSI BS COVERAGE. O2, RESP CONSULT, PNEUMONIA PATHWAY. BLOOD, URINE AND SPUTUM CULTURES PENDING. IV ATBX THERAPY,. BP MONITORING, I & OS (3) Bronchitis Status: Acute (4) CRF (chronic renal failure) Status: Acute (5) CHF (congestive heart failure) Status: Acute Qualifiers: Qualified Code(s): I50.9 - Heart failure, unspecified (6) Generalized weakness Status: Acute (7) Diabetes mellitus, type 2 Status: Chronic (8) GERD (gastroesophageal reflux disease) Status: Chronic (9) Hypertension Status: Chronic
[2017-12-29] MEDS: MUCOMYST 20% 200 MG/ML NEB SCH ×2 (16:14→20:26)
[2017-12-29] MEDS: D5 1/2 NS 1000 ML 1,000 ML IV SCH (18:17)
[2017-12-29] MEDS: SNACK - Diabetic Appropriate PO SCH (20:46)
[2017-12-29] MEDS: ROBITUSSIN DM PO SCH (20:46)
[2017-12-30] MEDS: DUONEB 0.5 MG/3 MG NEB SCH ×6 (01:14→21:05)
[2017-12-30] MEDS: MERREM VIAL 1 GM in NS 100 ML IV + SPIKE MINIBAG* 100 ML IV SCH ×3 (05:13→22:05)
[2017-12-30 05:51] LABS: BASOPHILS # (AUTO) 0.1 X10^3/uL (0.0-0.1); BASOPHILS % (AUTO) 0.8 % (0.2-1.0); EOSINOPHILS # (AUTO) 0.4 x10^3/uL (0.0-0.2); EOSINOPHILS % (AUTO) 3.7 % (0.9-2.9); HEMATOCRIT 33.9 % (42.0-54.0); HEMOGLOBIN 10.9 g/dL (13.5-18.0); LYMPHOCYTES # (AUTO) 1.9 X10^3/uL (1.3-2.9); LYMPHOCYTES % (AUTO) 18.1 % (21.0-51.0); MEAN CORPUSCULAR VOLUME 84.5 fL (80.0-100.0); MEAN PLATELET VOLUME 7.5 fL (7.4-11.0); MONOCYTES # (AUTO) 0.8 x10^3/uL (0.3-0.8); MONOCYTES % (AUTO) 7.9 % (0.0-13.0); NEUTROPHILS # (AUTO) 7.2 x10^3/uL (2.2-4.8); NEUTROPHILS % (AUTO) 69.5 % (42.0-75.0); PLATELET COUNT 231 X10^3/uL (150.0-450.0); RED BLOOD COUNT 4.02 X10^6/uL (4.7-6.0); RED CELL DISTRIBUTION WIDTH 15.1 % (11.6-16.5); WHITE BLOOD COUNT 10.4 X10^3/uL (3.6-10.0)
[2017-12-30 05:57] LABS: ALANINE AMINOTRANSFERASE 26 Units/L (12-78); ALBUMIN 2.5 g/dL (3.4-5.0); ALKALINE PHOSPHATASE 136 Units/L (46-116); ASPARTATE AMINO TRANSFERASE 24 Units/L (15-37); BLOOD UREA NITROGEN 20 mg/dL (7-18); CALCIUM 8.4 mg/dL (8.5-10.1); CARBON DIOXIDE 35.3 mmol/L (21-32); CHLORIDE 108 mmol/L (98-107); COR CA(FOR HYPOALB) 9.6 mg/dL (8.5-10.1); CREATININE 1.34 mg/dL (0.70-1.30); SODIUM 144 mmol/L (136-145); TOTAL PROTEIN 7.1 g/dL (6.4-8.2); eGFR BLACK RACES > 60 (>60); eGFR NON BLACK RACES 58 (>60)
[2017-12-30 07:24] LABS: STOOL FOR WBC NEGATIVE (NEGATIVE)
[2017-12-30] MEDS: ZITHROMAX INJ 500 MG VIAL 500 MG in NS 250 ML IV 250 ML IV SCH (08:51)
[2017-12-30] MEDS: ROBITUSSIN DM PO SCH ×4 (08:52→20:10)
[2017-12-30 09:05] LABS: CRYPTOSPORIDIUM PARVUM ANTIGEN NEGATIVE (NEGATIVE); GIARDIA LAMBLIA ANTIGEN NEGATIVE (NEGATIVE)
[2017-12-30] MEDS: MUCOMYST 20% 200 MG/ML NEB SCH ×4 (09:30→21:05)
[2017-12-30] MEDS ORDERED: CONSULT PHARMACY - ANTIBIOTIC XX SCH (10:00)
--- NOTE | 2017-12-30 14:32 | CT ---
Indication: Pneumonia and shortness of breath Exam: CT chest without contrast. Technique: Axial spiral images were obtained from the level above the clavicles through the adrenals without contrast. Automated dose control was utilized. Comparison: 09/10/2017 . Findings: There is asymmetric heterogeneous enlargement of the left lobe of the thyroid gland which i s unchanged with a 2.4 cm peripherally calcified nodule in the left lobe which better visualized. The pulmonary arteries are prominent centrally and more prominent. The aorta is normal caliber . There a re a couple of small lymph nodes in the AP window and pretracheal region measuring up to 1 cm which a re unchanged. There are tiny pleural effusions along the lung bases posteriorly which is more promine nt on the right and extends superiorly on the right which is more prominent. There is moderate ground -glass opacity with subsegmental parenchymal opacity along the left upper lobe extending inferiorly i nto the perihilar region and lingula. There are reticular nodular and ground-glass infiltrates scatte red along the left lower lobe which is more prominent with a 5 mm pleural-based nodule along the left lung base posteriorly which is more prominent . There are subsegmental and ground-glass infiltrates along the right upper lobe extending inferiorly into the perihilar region and along the right lung ba se anteriorly and posteriorly. No endobronchial lesion is seen . The bones are intact. The adrenals a re normal . There is a partially visualized 5 cm cystic mass along the upper pole left kidney which i s unchanged the right kidney is not visualized Impression: Moderate ground-glass and reticular nodular infiltrates scattered in both lungs which is more promine nt on the left and is not seen previously . This may represent multisegmental bronchopneumonia . Kilo mmend short-term follow-up to assure resolution. Tiny bibasilar pleural effusions which is more prominent on the right. 5 mm nodule left lower lobe which could represent an infiltrate or nodule. Recommend short-term follo w-up Prominent central pulmonary vessels suggestive of pulmonary hypertension which is more prominent Small lymph nodes in the mediastinum which are grossly unchanged. Probable asymmetric multinodular goiter with a calcified nodule on the left which is more prominent. Suggest ultrasound correlation. Reported By:
[2017-12-30] MEDS: D5 1/2 NS 1000 ML 1,000 ML IV SCH (17:29)
[2017-12-30] MEDS: SNACK - Diabetic Appropriate PO SCH (20:14)
[2017-12-31] MEDS: DUONEB 0.5 MG/3 MG NEB SCH ×6 (01:03→21:33)
[2017-12-31] MEDS: MERREM VIAL 1 GM in NS 100 ML IV + SPIKE MINIBAG* 100 ML IV SCH ×2 (05:15→20:39)
[2017-12-31 07:31] LABS: BASOPHILS # (AUTO) 0.1 X10^3/uL (0.0-0.1); EOSINOPHILS # (AUTO) 0.3 x10^3/uL (0.0-0.2); HEMATOCRIT 39.3 % (42.0-54.0); HEMOGLOBIN 12.3 g/dL (13.5-18.0); LYMPHOCYTES # (AUTO) 1.4 X10^3/uL (1.3-2.9); MEAN CORPUSCULAR HGB CONC 31.4 g/dL (33.0-35.0); MEAN PLATELET VOLUME 7.4 fL (7.4-11.0); MONOCYTES # (AUTO) 1.3 x10^3/uL (0.3-0.8); MONOCYTES % (AUTO) 9.3 % (0.0-13.0); NEUTROPHILS # (AUTO) 10.5 x10^3/uL (2.2-4.8); NEUTROPHILS % (AUTO) 77.7 % (42.0-75.0); PLATELET COUNT 229 X10^3/uL (150.0-450.0); RED BLOOD COUNT 4.57 X10^6/uL (4.7-6.0); RED CELL DISTRIBUTION WIDTH 15.2 % (11.6-16.5); WHITE BLOOD COUNT 13.5 X10^3/uL (3.6-10.0)
[2017-12-31 07:39] LABS: ALBUMIN 2.7 g/dL (3.4-5.0); CALCIUM 9.1 mg/dL (8.5-10.1); CARBON DIOXIDE 36.4 mmol/L (21-32); COR CA(FOR HYPOALB) 10.1 mg/dL (8.5-10.1); CREATININE 2.21 mg/dL (0.70-1.30)
[2017-12-31 08:58] LABS: ABG BASE EXCESS 11.2 mmol/L (-2.0-2.0)
[2017-12-31 08:59] LABS: ABG ALLEN TEST POS; ABG HCO3 43.2 mmol/L (22-26)
[2017-12-31] MEDS ORDERED: LASIX IVP SCH (09:00)
[2017-12-31] MEDS: ZITHROMAX INJ 500 MG VIAL 500 MG in NS 250 ML IV 250 ML IV SCH (09:30)
[2017-12-31] MEDS: MUCOMYST 20% 200 MG/ML NEB SCH ×4 (09:34→21:33)
[2017-12-31] MEDS: ROBITUSSIN DM PO SCH ×4 (13:06→20:40)
--- NOTE | 2017-12-31 16:08 | PCM.PROG ---
Progress Note - Progress Note for Day of Date: 12/30/17 - Subjective Subjective: PT 57 WM RESIDENT FOR [facility] ADMITTED ONE DAY AGO WITH SOB, PT CXR REVEALED MULTI-FOCAL PNEUMONIA. PT HAS IMPROVING RESP DISTRESS, RESTING THIS AM, IMPROVING APPETITE. CO CONTINUED CHEST CONGESTION AND COUGH THIS AM. PT ON IV ATBX, RESP THERAPY, O2, CT CHEST W/O ORDERED FOR TODAY, ENCOURAGE PULONARY TOILETING - Past Medical Family Social History Past Med/Fam/Surg Hx: No changes since H&P Allergies: Allergies No Known Drug Allergies [NKDA] Allergy (Verified 12/18/17 09:13) - Review of Systems ROS: No change since H&P - Vital Signs and I&O's Vital Signs: Temperature 98.7 F Pulse Rate [Apical] 87 Pulse Rate 85 Respiratory Rate 18 Blood Pressure [Right Arm] 108/57 Blood Pressure [Left Arm] 110/55 Blood Pressure 156/74 O2 Sat by Pulse Oximetry 96 Intake and Output: Intake & Output 12/29/17 12/30/17 12/31/17 01/01/18 11:59 11:59 11:59 11:59 Intake Total 1760 2072 2478 Output Total 1275 1975 1280 Balance 400 89 8345 - Physical Exam Oriented: Person Eyes: Normal Ear: Normal Nose: Normal Throat: Normal Respiratory: Wheezes, Rhonchi Cardiovascular: Normal, Edema : Normal Auscultation: Bowel Sounds: Normal Tenderness: Normal Skin: Normal Musculoskeletal: Back:Lumbar, Motor Deficit Psychiatric: Anxiety, Depression Affect: Depressed Speech Pattern: Clear, Appropriate - Laboratory and Diagnostics Result Diagrams: 12/31/17 07:15 12/31/17 07:15 Labs: 12/30/17 15:12 Sputum - Expectorated Sputum Sputum Culture - Preliminary 12/30/17 15:12 Sputum - Expectorated Sputum - Final 12/30/17 06:35 Stool Stool Culture - Preliminary 12/30/17 06:35 Stool - Final 12/27/17 21:10 Urine,Clean Catch Urine Culture - Final Pseudomonas Aeruginosa 12/27/17 15:00 Blood Blood Culture - Preliminary 12/27/17 15:04 Blood Blood Culture - Preliminary Laboratory WBC 13.5 X10^3/uL (3.6-10.0) H 12/31/17 07:15 RBC 4.57 X10^6/uL (4.7-6.0) L 12/31/17 07:15 Hgb 12.3 g/dL (13.5-18.0) L 12/31/17 07:15 Hct 39.3 % (42.0-54.0) L 12/31/17 07:15 MCV 86.0 fL (80.0-100.0) 12/31/17 07:15 MCH 27.0 pg (27.0-34.0) 12/31/17 07:15 MCHC 31.4 g/dL (33.0-35.0) L 12/31/17 07:15 RDW 15.2 % (11.6-16.5) 12/31/17 07:15 Plt Count 229 X10^3/uL (150.0-450.0) 12/31/17 07:15 MPV 7.4 fL (7.4-11.0) 12/31/17 07:15 Neut % (Auto) 77.7 % (42.0-75.0) H 12/31/17 07:15 Lymph % (Auto) 10.0 % (21.0-51.0) L 12/31/17 07:15 [place] % (Auto) 9.3 % (0.0-13.0) 12/31/17 07:15 Eos % (Auto) 2.0 % (0.9-2.9) 12/31/17 07:15 Baso % (Auto) 1.0 % (0.2-1.0) 12/31/17 07:15 Neut # (Auto) 10.5 x10^3/uL (2.2-4.8) H 12/31/17 07:15 Lymph # (Auto) 1.4 X10^3/uL (1.3-2.9) 12/31/17 07:15 [place] # (Auto) 1.3 x10^3/uL (0.3-0.8) H 12/31/17 07:15 Eos # (Auto) 0.3 x10^3/uL (0.0-0.2) H 12/31/17 07:15 Baso # (Auto) 0.1 X10^3/uL (0.0-0.1) 12/31/17 07:15 Absolute Nucleated RBC 0.0 /100WBC 12/31/17 07:15 Sample Site Lra 12/31/17 08:50 ABG pH 7.210 (7.35-7.45) L 12/31/17 08:50 ABG pCO2 108.0 mmHg (35.0-45.0) H* 12/31/17 08:50 ABG pO2 56.0 mmHg (80.0-100.0) L 12/31/17 08:50 ABG HCO3 43.2 mmol/L (22-26) H* 12/31/17 08:50 ABG O2 Saturation 82.0 % (90-100) L* 12/31/17 08:50 ABG Base Excess 11.2 mmol/L (-2.0-2.0) H 12/31/17 08:50 Ishmael Test Pos 12/31/17 08:50 A-a Gradient 37.0 mmHg 12/31/17 08:50 FiO2 32.000 12/31/17 08:50 Blood Gas Comments Michelle well cs 12/31/17 08:50 Sodium 145 mmol/L (136-145) 12/31/17 07:15 Corrected Sodium 146 mmol/L (136-145) H 12/31/17 07:15 Potassium 4.8 mmol/L (3.5-5.1) 12/31/17 07:15 Chloride 105 mmol/L (98-107) 12/31/17 07:15 Carbon Dioxide 36.4 mmol/L (21-32) H 12/31/17 07:15 BUN 27 mg/dL (7-18) H 12/31/17 07:15 Creatinine 2.21 mg/dL (0.70-1.30) H 12/31/17 07:15 Est GFR (MDRD) Af Amer 39 (>60) L 12/31/17 07:15 Est GFR (MDRD) Non-Af 33 (>60) L 12/31/17 07:15 Glucose 144 mg/dL (65-99) H 12/31/17 07:15 POC Glucose (mg/dL) 129 mg/dL (65-99) H 12/31/17 12:06 Calcium 9.1 mg/dL (8.5-10.1) 12/31/17 07:15 Corrected Calcium 10.1 mg/dL (8.5-10.1) 12/31/17 07:15 Total Bilirubin 0.40 mg/dL (0.2-1.0) 12/31/17 07:15 AST 305 Units/L (15-37) H 12/31/17 07:15 ALT 258 Units/L (12-78) H 12/31/17 07:15 Alkaline Phosphatase 214 Units/L (46-116) H 12/31/17 07:15 Total Protein 8.0 g/dL (6.4-8.2) 12/31/17 07:15 Albumin 2.7 g/dL (3.4-5.0) L 12/31/17 07:15 Globulin 5.3 g/dL (2.5-4.5) H 12/31/17 07:15 Albumin/Globulin Ratio 0.5 Ratio (1.1-2.1) L 12/31/17 07:15 Specimen Type Clean catch urine 12/27/17 21:10 Urine Color Yellow (YELLOW) 12/27/17 21:10 Urine Appearance Hazy (CLEAR) 12/27/17 21:10 Urine pH 5.0 (5.0 - 8.0) 12/27/17 21:10 Ur Specific [place] 1.010 (1.000-1.030) 12/27/17 21:10 Urine Protein 3+ (NEGATIVE) 12/27/17 21:10 Urine Glucose (UA) Negative (NEGATIVE) 12/27/17 21:10 Urine Ketones Negative (NEGATIVE) 12/27/17 21:10 Urine Occult Blood Negative (NEGATIVE) 12/27/17 21:10 Urine Nitrite Negative (NEGATIVE) 12/27/17 21:10 Urine Bilirubin Negative (NEGATIVE) 12/27/17 21:10 Urine Urobilinogen Normal (NORMAL) 12/27/17 21:10 Ur Leukocyte Esterase 3+ (NEGATIVE) 12/27/17 21:10 Urine RBC 3-5 /HPF (NONE SEEN) 12/27/17 21:10 Urine WBC 20-30 /HPF (NONE SEEN) 12/27/17 21:10 Ur Squamous Epith Cells Rare /HPF (NEGATIVE) 12/27/17 21:10 Urine Bacteria Trace /HPF (NEGATIVE) 12/27/17 21:10 Urine Mucus Few /HPF (NEGATIVE) 12/27/17 21:10 Ur Culture Indicated? Yes/culture set up 12/27/17 21:10 Stool Description 30g brown mucoid 12/30/17 06:35 Stl Occult Blood (IFOB) Positive (NEGATIVE) A 12/30/17 06:35 Stool for White Cells Negative (NEGATIVE) 12/30/17 06:35 Stl C. diff Tox B Gene Negative (NEGATIVE) 12/30/17 06:35 Stl C. diff 027-NAP1-BI Negative (NEGATIVE) 12/30/17 06:35 Cryptosporid parvum Ag Negative (NEGATIVE) 12/30/17 06:35 E. histolytica Antigen Negative (NEGATIVE) 12/30/17 06:35 Giardia lamblia Ag Negative (NEGATIVE) 12/30/17 06:35 - Plan (1) Pneumonia Status: Acute Qualifiers: Pneumonia type: due to unspecified organism Laterality: left Lung location: lower lobe of lung Qualified Code(s): J18.9 - Pneumonia, unspecified organism Plan: O2, RESP CONSULT, PNEUMONIA PATHWAY. SMART VEST AND MUCOMYST, PULMONARY TOILETING. CT CHEST (2) SOB (shortness of breath) Status: Acute Plan: EKG CXR ABG ON ADMISSION,. SSI BS COVERAGE. O2, RESP CONSULT, PNEUMONIA PATHWAY. BLOOD, URINE AND SPUTUM CULTURES PENDING. IV ATBX THERAPY,. BP MONITORING, I & OS (3) Bronchitis Status: Acute (4) CRF (chronic renal failure) Status: Acute (5) CHF (congestive heart failure) Status: Acute Qualifiers: Qualified Code(s): I50.9 - Heart failure, unspecified (6) Generalized weakness Status: Acute (7) Diabetes mellitus, type 2 Status: Chronic Plan: PT EXPERIENCING LOWS DUE TO POOR APPETITE. SSI, D5 1/2 NS IVFLS (8) GERD (gastroesophageal reflux disease) Status: Chronic (9) Hypertension Status: Chronic
--- NOTE | 2017-12-31 16:12 | PCM.PROG ---
Progress Note - Progress Note for Day of Date: 12/31/17 - Subjective Subjective: PT 57 WM RESIDENT FOR [place] ADMITTED ONE DAY AGO WITH SOB, PT CXR REVEALED MULTI-FOCAL PNEUMONIA. PT HAD CT CHEST ON 12/30 WITH CONFIRMATION PNEUMONIA. PT ALSO HAD STOOL POSITIVE FOR CAMPYLOBACTOR, STARTED ON ZITHROMAX IV. PT EXPERIENCED WORSENING SOB DURING THE NIGHT. PLACED ON BIPAP. PT DECREASED ALERTNESS THIS AM, DENIES CHEST PAIN, WILL ANSWER QUESTIONS APPROPRIATELY, PT STATES "FEELS LIKE IS LOW". ABG, FSBS, ENCOURAGE HYDRATION AND APPETITE. WILL REPEAT AM LABS, CONTINUE RESP THERAPY, SUPPORTIVE CARE. - Past Medical Family Social History Past Med/Fam/Surg Hx: No changes since H&P Allergies: Allergies No Known Drug Allergies [NKDA] Allergy (Verified 12/18/17 09:13) - Review of Systems ROS: No change since H&P - Vital Signs and I&O's Vital Signs: Temperature 98.7 F Pulse Rate [Apical] 87 Pulse Rate 85 Respiratory Rate 18 Blood Pressure [Right Arm] 108/57 Blood Pressure [Left Arm] 110/55 Blood Pressure 156/74 O2 Sat by Pulse Oximetry 96 Intake and Output: Intake & Output 12/29/17 12/30/17 12/31/17 01/01/18 11:59 11:59 11:59 11:59 Intake Total 1760 2072 2478 Output Total 1275 1975 1280 Balance 958 17 2162 - Physical Exam Oriented: Person Eyes: Normal Ear: Normal Nose: Normal Throat: Normal Respiratory: Wheezes, Rhonchi Cardiovascular: Normal, Edema : Normal Auscultation: Bowel Sounds: Normal Tenderness: Normal Skin: Normal Musculoskeletal: Back:Lumbar, Motor Deficit Psychiatric: Anxiety, Depression Affect: Depressed Speech Pattern: Clear, Appropriate - Laboratory and Diagnostics Result Diagrams: 12/31/17 07:15 12/31/17 07:15 Labs: 12/30/17 15:12 Sputum - Expectorated Sputum Sputum Culture - Preliminary 12/30/17 15:12 Sputum - Expectorated Sputum - Final 12/30/17 06:35 Stool Stool Culture - Preliminary 12/30/17 06:35 Stool - Final 12/27/17 21:10 Urine,Clean Catch Urine Culture - Final Pseudomonas Aeruginosa 12/27/17 15:00 Blood Blood Culture - Preliminary 12/27/17 15:04 Blood Blood Culture - Preliminary Laboratory WBC 13.5 X10^3/uL (3.6-10.0) H 12/31/17 07:15 RBC 4.57 X10^6/uL (4.7-6.0) L 12/31/17 07:15 Hgb 12.3 g/dL (13.5-18.0) L 12/31/17 07:15 Hct 39.3 % (42.0-54.0) L 12/31/17 07:15 MCV 86.0 fL (80.0-100.0) 12/31/17 07:15 MCH 27.0 pg (27.0-34.0) 12/31/17 07:15 MCHC 31.4 g/dL (33.0-35.0) L 12/31/17 07:15 RDW 15.2 % (11.6-16.5) 12/31/17 07:15 Plt Count 229 X10^3/uL (150.0-450.0) 12/31/17 07:15 MPV 7.4 fL (7.4-11.0) 12/31/17 07:15 Neut % (Auto) 77.7 % (42.0-75.0) H 12/31/17 07:15 Lymph % (Auto) 10.0 % (21.0-51.0) L 12/31/17 07:15 [place] % (Auto) 9.3 % (0.0-13.0) 12/31/17 07:15 Eos % (Auto) 2.0 % (0.9-2.9) 12/31/17 07:15 Baso % (Auto) 1.0 % (0.2-1.0) 12/31/17 07:15 Neut # (Auto) 10.5 x10^3/uL (2.2-4.8) H 12/31/17 07:15 Lymph # (Auto) 1.4 X10^3/uL (1.3-2.9) 12/31/17 07:15 [place] # (Auto) 1.3 x10^3/uL (0.3-0.8) H 12/31/17 07:15 Eos # (Auto) 0.3 x10^3/uL (0.0-0.2) H 12/31/17 07:15 Baso # (Auto) 0.1 X10^3/uL (0.0-0.1) 12/31/17 07:15 Absolute Nucleated RBC 0.0 /100WBC 12/31/17 07:15 Sample Site Lra 12/31/17 08:50 ABG pH 7.210 (7.35-7.45) L 12/31/17 08:50 ABG pCO2 108.0 mmHg (35.0-45.0) H* 12/31/17 08:50 ABG pO2 56.0 mmHg (80.0-100.0) L 12/31/17 08:50 ABG HCO3 43.2 mmol/L (22-26) H* 12/31/17 08:50 ABG O2 Saturation 82.0 % (90-100) L* 12/31/17 08:50 ABG Base Excess 11.2 mmol/L (-2.0-2.0) H 12/31/17 08:50 Ishmael Test Pos 12/31/17 08:50 A-a Gradient 37.0 mmHg 12/31/17 08:50 FiO2 32.000 12/31/17 08:50 Blood Gas Comments Michelle well cs 12/31/17 08:50 Sodium 145 mmol/L (136-145) 12/31/17 07:15 Corrected Sodium 146 mmol/L (136-145) H 12/31/17 07:15 Potassium 4.8 mmol/L (3.5-5.1) 12/31/17 07:15 Chloride 105 mmol/L (98-107) 12/31/17 07:15 Carbon Dioxide 36.4 mmol/L (21-32) H 12/31/17 07:15 BUN 27 mg/dL (7-18) H 12/31/17 07:15 Creatinine 2.21 mg/dL (0.70-1.30) H 12/31/17 07:15 Est GFR (MDRD) Af Amer 39 (>60) L 12/31/17 07:15 Est GFR (MDRD) Non-Af 33 (>60) L 12/31/17 07:15 Glucose 144 mg/dL (65-99) H 12/31/17 07:15 POC Glucose (mg/dL) 129 mg/dL (65-99) H 12/31/17 12:06 Calcium 9.1 mg/dL (8.5-10.1) 12/31/17 07:15 Corrected Calcium 10.1 mg/dL (8.5-10.1) 12/31/17 07:15 Total Bilirubin 0.40 mg/dL (0.2-1.0) 12/31/17 07:15 AST 305 Units/L (15-37) H 12/31/17 07:15 ALT 258 Units/L (12-78) H 12/31/17 07:15 Alkaline Phosphatase 214 Units/L (46-116) H 12/31/17 07:15 Total Protein 8.0 g/dL (6.4-8.2) 12/31/17 07:15 Albumin 2.7 g/dL (3.4-5.0) L 12/31/17 07:15 Globulin 5.3 g/dL (2.5-4.5) H 12/31/17 07:15 Albumin/Globulin Ratio 0.5 Ratio (1.1-2.1) L 12/31/17 07:15 Specimen Type Clean catch urine 12/27/17 21:10 Urine Color Yellow (YELLOW) 12/27/17 21:10 Urine Appearance Hazy (CLEAR) 12/27/17 21:10 Urine pH 5.0 (5.0 - 8.0) 12/27/17 21:10 Ur Specific [place] 1.010 (1.000-1.030) 12/27/17 21:10 Urine Protein 3+ (NEGATIVE) 12/27/17 21:10 Urine Glucose (UA) Negative (NEGATIVE) 12/27/17 21:10 Urine Ketones Negative (NEGATIVE) 12/27/17 21:10 Urine Occult Blood Negative (NEGATIVE) 12/27/17 21:10 Urine Nitrite Negative (NEGATIVE) 12/27/17 21:10 Urine Bilirubin Negative (NEGATIVE) 12/27/17 21:10 Urine Urobilinogen Normal (NORMAL) 12/27/17 21:10 Ur Leukocyte Esterase 3+ (NEGATIVE) 12/27/17 21:10 Urine RBC 3-5 /HPF (NONE SEEN) 12/27/17 21:10 Urine WBC 20-30 /HPF (NONE SEEN) 12/27/17 21:10 Ur Squamous Epith Cells Rare /HPF (NEGATIVE) 12/27/17 21:10 Urine Bacteria Trace /HPF (NEGATIVE) 12/27/17 21:10 Urine Mucus Few /HPF (NEGATIVE) 12/27/17 21:10 Ur Culture Indicated? Yes/culture set up 12/27/17 21:10 Stool Description 30g brown mucoid 12/30/17 06:35 Stl Occult Blood (IFOB) Positive (NEGATIVE) A 12/30/17 06:35 Stool for White Cells Negative (NEGATIVE) 12/30/17 06:35 Stl C. diff Tox B Gene Negative (NEGATIVE) 12/30/17 06:35 Stl C. diff 027-NAP1-BI Negative (NEGATIVE) 12/30/17 06:35 Cryptosporid parvum Ag Negative (NEGATIVE) 12/30/17 06:35 E. histolytica Antigen Negative (NEGATIVE) 12/30/17 06:35 Giardia lamblia Ag Negative (NEGATIVE) 12/30/17 06:35 - Plan (1) Pneumonia Status: Acute Qualifiers: Pneumonia type: due to unspecified organism Laterality: left Lung location: lower lobe of lung Qualified Code(s): J18.9 - Pneumonia, unspecified organism Plan: O2, RESP CONSULT, PNEUMONIA PATHWAY. SMART VEST AND MUCOMYST, PULMONARY TOILETING. CT CHEST (2) SOB (shortness of breath) Status: Acute Plan: EKG CXR ABG ON ADMISSION,. SSI BS COVERAGE. O2, RESP CONSULT, PNEUMONIA PATHWAY. BLOOD, URINE AND SPUTUM COLLECTED ON ADMISSION. IV ATBX THERAPY,. BP MONITORING, I & OS (3) Bronchitis Status: Acute (4) CRF (chronic renal failure) Status: Acute (5) CHF (congestive heart failure) Status: Acute Qualifiers: Qualified Code(s): I50.9 - Heart failure, unspecified (6) Generalized weakness Status: Acute (7) Diabetes mellitus, type 2 Status: Chronic Plan: PT EXPERIENCING LOWS DUE TO POOR APPETITE. SSI, D5 1/2 NS IVFLS (8) GERD (gastroesophageal reflux disease) Status: Chronic (9) Hypertension Status: Chronic (10) Campylobacter diarrhea Status: Acute Plan: ZITHROMAX IV
[2017-12-31] MEDS: SNACK - Diabetic Appropriate PO SCH (20:39)
[2017-12-31] MEDS: NYSTATIN POWDER TOP PRN (20:40)
[2018-01-01] MEDS: DUONEB 0.5 MG/3 MG NEB SCH ×6 (00:43→20:55)
[2018-01-01] MEDS: D5 1/2 NS 1000 ML 1,000 ML IV SCH ×2 (01:00→21:19)
[2018-01-01 05:27] LABS: BASOPHILS # (AUTO) 0.1 X10^3/uL (0.0-0.1); BASOPHILS % (AUTO) 0.8 % (0.2-1.0); EOSINOPHILS # (AUTO) 0.4 x10^3/uL (0.0-0.2); EOSINOPHILS % (AUTO) 3.9 % (0.9-2.9); HEMATOCRIT 37.5 % (42.0-54.0); HEMOGLOBIN 11.6 g/dL (13.5-18.0); LYMPHOCYTES # (AUTO) 1.7 X10^3/uL (1.3-2.9); LYMPHOCYTES % (AUTO) 14.7 % (21.0-51.0); MEAN CORPUSCULAR VOLUME 87.3 fL (80.0-100.0); MEAN PLATELET VOLUME 7.9 fL (7.4-11.0); MONOCYTES # (AUTO) 0.8 x10^3/uL (0.3-0.8); MONOCYTES % (AUTO) 6.8 % (0.0-13.0); NEUTROPHILS # (AUTO) 8.4 x10^3/uL (2.2-4.8); NEUTROPHILS % (AUTO) 73.8 % (42.0-75.0); PLATELET COUNT 210 X10^3/uL (150.0-450.0); RED CELL DISTRIBUTION WIDTH 15.2 % (11.6-16.5); WHITE BLOOD COUNT 11.4 X10^3/uL (3.6-10.0)
[2018-01-01 05:44] LABS: ALBUMIN 2.5 g/dL (3.4-5.0); CALCIUM 8.4 mg/dL (8.5-10.1); CARBON DIOXIDE 31.8 mmol/L (21-32); COR CA(FOR HYPOALB) 9.6 mg/dL (8.5-10.1); CREATININE 2.73 mg/dL (0.70-1.30); TOTAL PROTEIN 7.6 g/dL (6.4-8.2)
[2018-01-01 05:54] LABS: ABG BASE EXCESS 9.5 mmol/L (-2.0-2.0)
[2018-01-01 05:56] LABS: ABG HCO3 39.9 mmol/L (22-26)
[2018-01-01 05:57] LABS: ABG ALLEN TEST POS
[2018-01-01] MEDS: MUCOMYST 20% 200 MG/ML NEB SCH ×2 (09:25→12:26)
[2018-01-01] MEDS: ROBITUSSIN DM PO SCH ×4 (10:43→21:24)
[2018-01-01] MEDS: MERREM VIAL 1 GM in NS 100 ML IV + SPIKE MINIBAG* 100 ML IV SCH ×2 (10:43→21:20)
[2018-01-01] MEDS: ZITHROMAX INJ 500 MG VIAL 500 MG in NS 250 ML IV 250 ML IV SCH (11:02)
[2018-01-01] MEDS: VALIUM PO SCH ×3 (13:17→21:24)
[2018-01-01] MEDS: SNACK - Diabetic Appropriate PO SCH (21:27)
[2018-01-02] MEDS: DUONEB 0.5 MG/3 MG NEB SCH ×6 (01:33→21:40)
[2018-01-02 05:00] LABS: BASOPHILS # (AUTO) 0.1 X10^3/uL (0.0-0.1); BASOPHILS % (AUTO) 0.8 % (0.2-1.0); EOSINOPHILS # (AUTO) 0.5 x10^3/uL (0.0-0.2); EOSINOPHILS % (AUTO) 4.9 % (0.9-2.9); HEMATOCRIT 32.9 % (42.0-54.0); HEMOGLOBIN 10.5 g/dL (13.5-18.0); LYMPHOCYTES # (AUTO) 1.6 X10^3/uL (1.3-2.9); LYMPHOCYTES % (AUTO) 17.7 % (21.0-51.0); MEAN CORPUSCULAR HEMOGLOBIN 27.1 pg (27.0-34.0); MEAN CORPUSCULAR HGB CONC 31.9 g/dL (33.0-35.0); MEAN CORPUSCULAR VOLUME 84.9 fL (80.0-100.0); MEAN PLATELET VOLUME 7.9 fL (7.4-11.0); MONOCYTES # (AUTO) 0.6 x10^3/uL (0.3-0.8); MONOCYTES % (AUTO) 6.4 % (0.0-13.0); NEUTROPHILS # (AUTO) 6.5 x10^3/uL (2.2-4.8); NEUTROPHILS % (AUTO) 70.2 % (42.0-75.0); PLATELET COUNT 209 X10^3/uL (150.0-450.0); RED BLOOD COUNT 3.87 X10^6/uL (4.7-6.0); RED CELL DISTRIBUTION WIDTH 14.9 % (11.6-16.5); WHITE BLOOD COUNT 9.2 X10^3/uL (3.6-10.0)
[2018-01-02 05:11] LABS: ALBUMIN 2.3 g/dL (3.4-5.0); CALCIUM 8.5 mg/dL (8.5-10.1); CARBON DIOXIDE 31.2 mmol/L (21-32); COR CA(FOR HYPOALB) 9.9 mg/dL (8.5-10.1); CREATININE 1.86 mg/dL (0.70-1.30); TOTAL PROTEIN 7.2 g/dL (6.4-8.2)
[2018-01-02] MEDS: VALIUM PO SCH ×3 (05:41→21:09)
--- NOTE | 2018-01-02 08:43 | RAD ---
That Examination: Portable AP chest History: SOB Comparison 12/29/2017 Findings: Cardiomegaly with significant pulmonary vascular distention. Right lower lung infiltrate wi th associated elevation right diaphragm. No pneumothorax seen. Impression: Cardiomegaly with pulmonary congestion consistent with some degree of CHF. Infiltrate at right base may represent superimposed pneumonia or asymmetric pulmonary edema. Reported By:
[2018-01-02] MEDS: MERREM VIAL 1 GM in NS 100 ML IV + SPIKE MINIBAG* 100 ML IV SCH ×2 (10:29→21:05)
[2018-01-02] MEDS: ROBITUSSIN DM PO SCH ×4 (10:29→21:09)
[2018-01-02] MEDS: ZITHROMAX INJ 500 MG VIAL 500 MG in NS 250 ML IV 250 ML IV SCH (10:29)
[2018-01-02] MEDS ORDERED: BUTT CREAM (COMPOUND) TOP PRN (14:19)
[2018-01-02 17:43] LABS: CRYPTOSPORIDIUM PARVUM ANTIGEN NEGATIVE (NEGATIVE); GIARDIA LAMBLIA ANTIGEN NEGATIVE (NEGATIVE); STOOL FOR WBC NEGATIVE (NEGATIVE)
[2018-01-02] MEDS: D5 1/2 NS 1000 ML 1,000 ML IV SCH (18:15)
[2018-01-02] MEDS: SNACK - Diabetic Appropriate PO SCH (21:10)
--- NOTE | 2018-01-02 22:11 | PCM.PROG ---
Progress Note - Progress Note for Day of Date: 01/01/18 - Subjective Subjective: IS A RESIDENT OF [place]. HE IS BEING TREATED FOR ACUTE BRONCHITIS AND A URINARY TRACT INFECTION. TODAY, HE IS ALERT AND ORIENTED , LYING IN BED ON MORNING ROUNDS. HE IS CURRENTLY UTILIZING THE BIPAP. STAFF REPORTS THAT HE HAS NOT BEEN COMPLIANT WITH THE BIPAP, OFTEN TAKING IT OFF AND REFUSING TO WEAR IT. HE CONTINUES WITH SHORTNESS OF BREATH AND A WET COUGH. ON EXAMINATION, BILATERAL LUNGS ARE NOTED WITH SCATTERED WHEEZING AND RHONCHI THROUGHOUT. HIS VITALS THIS MORNING ARE 98.4-85-20-98%-149/70. ABNORMAL LAB VALUES INCLUDE THE FOLLOWING: WBC 11.4, RBC 4.30, HGB 11.6, HCT 37.5, BUN 39, CREATININE 2.73, GLUCOSE 117, CALCIUM 8., AST 106, ALT 166, ALK PHOS 182, ALBUMIN 2.5, GLOBULIN 5.1. ABG REVEALED PH 7.260, PC02 89, P02 79, HC03 39.9. URINE CULTURE REPORTED GROWTH OF PSEUDOMONAS AERUGINOSA. HE IS CURRENTLY RECEIVING AZITHROMYCIN 500MG IV DAILY AND MEROPENEM 1GM IV Q12H. WE WILL CONTINUE WITH CURRENT PLAN OF CARE TODAY. WE PLAN TO FOLLOW UP WITH AM LABS AND CONTINUE TO MONITOR PATIENT. - Past Medical Family Social History Past Med/Fam/Surg Hx: No changes since H&P Allergies: Allergies No Known Drug Allergies [NKDA] Allergy (Verified 12/18/17 09:13) - Review of Systems ROS: No change since H&P - Vital Signs and I&O's Vital Signs: Temperature 99.2 F Pulse Rate [Apical] 70 Pulse Rate 86 Respiratory Rate 24 Blood Pressure [Right Arm] 150/63 Blood Pressure [Left Arm] 148/67 Blood Pressure 156/74 O2 Sat by Pulse Oximetry 97 Intake and Output: Intake & Output 12/31/17 01/01/18 01/02/18 01/03/18 11:59 11:59 11:59 11:59 Intake Total 2478 1769 975 170 Output Total 1280 Balance 1198 1769 975 170 - Physical Exam Oriented: Normal Eyes: Normal Ear: Normal Nose: Normal Throat: Normal Respiratory: Wheezes, Rhonchi Cardiovascular: Normal, Edema : Normal Auscultation: Bowel Sounds: Normal Palpation: Normal Tenderness: Normal Skin: Normal Musculoskeletal: Back:Lumbar, Motor Deficit Psychiatric: Anxiety, Depression Affect: Depressed Speech Pattern: Clear, Appropriate - Laboratory and Diagnostics Result Diagrams: 01/02/18 04:35 01/02/18 04:35 Labs: 01/02/18 16:59 Stool - Final 12/27/17 15:04 Blood Blood Culture - Final 12/27/17 15:00 Blood Blood Culture - Final 12/30/17 06:35 Stool Stool Culture - Final 12/30/17 06:35 Stool - Final 12/30/17 15:12 Sputum - Expectorated Sputum Sputum Culture - Final 12/30/17 15:12 Sputum - Expectorated Sputum - Final 12/27/17 21:10 Urine,Clean Catch Urine Culture - Final Pseudomonas Aeruginosa Laboratory WBC 9.2 X10^3/uL (3.6-10.0) 01/02/18 04:35 RBC 3.87 X10^6/uL (4.7-6.0) L 01/02/18 04:35 Hgb 10.5 g/dL (13.5-18.0) L 01/02/18 04:35 Hct 32.9 % (42.0-54.0) L 01/02/18 04:35 MCV 84.9 fL (80.0-100.0) 01/02/18 04:35 MCH 27.1 pg (27.0-34.0) 01/02/18 04:35 MCHC 31.9 g/dL (33.0-35.0) L 01/02/18 04:35 RDW 14.9 % (11.6-16.5) 01/02/18 04:35 Plt Count 209 X10^3/uL (150.0-450.0) 01/02/18 04:35 MPV 7.9 fL (7.4-11.0) 01/02/18 04:35 Neut % (Auto) 70.2 % (42.0-75.0) 01/02/18 04:35 Lymph % (Auto) 17.7 % (21.0-51.0) L 01/02/18 04:35 [place] % (Auto) 6.4 % (0.0-13.0) 01/02/18 04:35 Eos % (Auto) 4.9 % (0.9-2.9) H 01/02/18 04:35 Baso % (Auto) 0.8 % (0.2-1.0) 01/02/18 04:35 Neut # (Auto) 6.5 x10^3/uL (2.2-4.8) H 01/02/18 04:35 Lymph # (Auto) 1.6 X10^3/uL (1.3-2.9) 01/02/18 04:35 [place] # (Auto) 0.6 x10^3/uL (0.3-0.8) 01/02/18 04:35 Eos # (Auto) 0.5 x10^3/uL (0.0-0.2) H 01/02/18 04:35 Baso # (Auto) 0.1 X10^3/uL (0.0-0.1) 01/02/18 04:35 Absolute Nucleated RBC 0.0 /100WBC 01/02/18 04:35 Sample Site Right radial 01/01/18 05:49 ABG pH 7.260 (7.35-7.45) L 01/01/18 05:49 ABG pCO2 89.0 mmHg (35.0-45.0) H* 01/01/18 05:49 ABG pO2 79.0 mmHg (80.0-100.0) L 01/01/18 05:49 ABG HCO3 39.9 mmol/L (22-26) H* 01/01/18 05:49 ABG O2 Saturation 94.0 % (90-100) 01/01/18 05:49 ABG Base Excess 9.5 mmol/L (-2.0-2.0) H 01/01/18 05:49 Ishmael Test Pos 01/01/18 05:49 A-a Gradient 166.0 mmHg 01/01/18 05:49 FiO2 50.000 01/01/18 05:49 Blood Gas Comments Michelle well jts 01/01/18 05:49 Sodium 141 mmol/L (136-145) 01/02/18 04:35 Corrected Sodium 141 mmol/L (136-145) 01/02/18 04:35 Potassium 4.7 mmol/L (3.5-5.1) 01/02/18 04:35 Chloride 105 mmol/L (98-107) 01/02/18 04:35 Carbon Dioxide 31.2 mmol/L (21-32) 01/02/18 04:35 BUN 38 mg/dL (7-18) H 01/02/18 04:35 Creatinine 1.86 mg/dL (0.70-1.30) H 01/02/18 04:35 Est GFR (MDRD) Af Amer 48 (>60) L 01/02/18 04:35 Est GFR (MDRD) Non-Af 40 (>60) L 01/02/18 04:35 Glucose 120 mg/dL (65-99) H 01/02/18 04:35 POC Glucose (mg/dL) 125 mg/dL (65-99) H 01/02/18 20:10 Calcium 8.5 mg/dL (8.5-10.1) 01/02/18 04:35 Corrected Calcium 9.9 mg/dL (8.5-10.1) 01/02/18 04:35 Total Bilirubin 0.40 mg/dL (0.2-1.0) 01/02/18 04:35 AST 54 Units/L (15-37) H 01/02/18 04:35 ALT 116 Units/L (12-78) H 01/02/18 04:35 Alkaline Phosphatase 165 Units/L (46-116) H 01/02/18 04:35 Total Protein 7.2 g/dL (6.4-8.2) 01/02/18 04:35 Albumin 2.3 g/dL (3.4-5.0) L 01/02/18 04:35 Globulin 4.9 g/dL (2.5-4.5) H 01/02/18 04:35 Albumin/Globulin Ratio 0.5 Ratio (1.1-2.1) L 01/02/18 04:35 Specimen Type Clean catch urine 12/27/17 21:10 Urine Color Yellow (YELLOW) 12/27/17 21:10 Urine Appearance Hazy (CLEAR) 12/27/17 21:10 Urine pH 5.0 (5.0 - 8.0) 12/27/17 21:10 Ur Specific [place] 1.010 (1.000-1.030) 12/27/17 21:10 Urine Protein 3+ (NEGATIVE) 12/27/17 21:10 Urine Glucose (UA) Negative (NEGATIVE) 12/27/17 21:10 Urine Ketones Negative (NEGATIVE) 12/27/17 21:10 Urine Occult Blood Negative (NEGATIVE) 12/27/17 21:10 Urine Nitrite Negative (NEGATIVE) 12/27/17 21:10 Urine Bilirubin Negative (NEGATIVE) 12/27/17 21:10 Urine Urobilinogen Normal (NORMAL) 12/27/17 21:10 Ur Leukocyte Esterase 3+ (NEGATIVE) 12/27/17 21:10 Urine RBC 3-5 /HPF (NONE SEEN) 12/27/17 21:10 Urine WBC 20-30 /HPF (NONE SEEN) 12/27/17 21:10 Ur Squamous Epith Cells Rare /HPF (NEGATIVE) 12/27/17 21:10 Urine Bacteria Trace /HPF (NEGATIVE) 12/27/17 21:10 Urine Mucus Few /HPF (NEGATIVE) 12/27/17 21:10 Ur Culture Indicated? Yes/culture set up 12/27/17 21:10 Stool Description 8g,unformed,mucoid, 01/02/18 16:59 Stl Occult Blood (IFOB) Positive (NEGATIVE) A 12/30/17 06:35 Stool for White Cells Negative (NEGATIVE) 01/02/18 16:59 Stl C. diff Tox B Gene Negative (NEGATIVE) 01/02/18 16:59 Stl C. diff [id number] Negative (NEGATIVE) 01/02/18 16:59 Cryptosporid parvum Ag Negative (NEGATIVE) 01/02/18 16:59 E. histolytica Antigen Negative (NEGATIVE) 01/02/18 16:59 Giardia lamblia Ag Negative (NEGATIVE) 01/02/18 16:59
--- NOTE | 2018-01-02 22:55 | PCM.PROG ---
Progress Note - Progress Note for Day of Date: 01/02/18 - Subjective Subjective: IS A RESIDENT OF [place]. HE IS BEING TREATED FOR ACUTE BRONCHITIS AND A URINARY TRACT INFECTION. TODAY, HE IS ALERT AND ORIENTED , LYING IN BED ON MORNING ROUNDS. HE CONTINUES WITH SHORTNESS OF BREATH AND A WET COUGH. HE REFUSED TO WEAR BIPAP AND WILL NOT TAKE THE VALIUM THAT WE ORDERED YESTERDAY. ON EXAMINATION, BILATERAL LUNGS ARE NOTED WITH SCATTERED WHEEZING AND RHONCHI THROUGHOUT. HIS VITALS THIS MORNING ARE 98.5-82-22-93%-180/ 84. ABNORMAL LAB VALUES INCLUDE THE FOLLOWING: RBC 3.87, HGB 10.5, HCT 32.9, BUN 38, CREATININE 1.86, GLUCOSE 120, AST 54, ALT 116, ALK PHOS 165, ALBUMIN 2.3 , GLOBULIN 4.9. HE IS CURRENTLY RECEIVING AZITHROMYCIN 500MG IV DAILY AND MEROPENEM 1GM IV Q12H. WE WILL CONTINUE WITH CURRENT PLAN OF CARE TODAY. WE PLAN TO FOLLOW UP WITH AM LABS AND CONTINUE TO MONITOR PATIENT. - Past Medical Family Social History Past Med/Fam/Surg Hx: No changes since H&P Allergies: Allergies No Known Drug Allergies [NKDA] Allergy (Verified 12/18/17 09:13) - Review of Systems ROS: No change since H&P - Vital Signs and I&O's Vital Signs: Temperature 99.2 F Pulse Rate [Apical] 70 Pulse Rate 86 Respiratory Rate 24 Blood Pressure [Right Arm] 150/63 Blood Pressure [Left Arm] 148/67 Blood Pressure 156/74 O2 Sat by Pulse Oximetry 97 Intake and Output: Intake & Output 12/31/17 01/01/18 01/02/18 01/03/18 11:59 11:59 11:59 11:59 Intake Total 2478 1769 975 220 Output Total 1280 300 Balance 1198 1769 975 -80 - Physical Exam Oriented: Normal Eyes: Normal Ear: Normal Nose: Normal Throat: Normal Respiratory: Generalized, Wheezes, Rhonchi Cardiovascular: Normal, Edema : Normal Auscultation: Bowel Sounds: Normal Palpation: Normal Tenderness: Normal Skin: Normal Musculoskeletal: Back:Lumbar, Motor Deficit Psychiatric: Anxiety, Depression Affect: Depressed Speech Pattern: Clear, Appropriate - Laboratory and Diagnostics Result Diagrams: 01/02/18 04:35 01/02/18 04:35 Labs: 01/02/18 16:59 Stool - Final 12/27/17 15:04 Blood Blood Culture - Final 12/27/17 15:00 Blood Blood Culture - Final 12/30/17 06:35 Stool Stool Culture - Final 12/30/17 06:35 Stool - Final 12/30/17 15:12 Sputum - Expectorated Sputum Sputum Culture - Final 12/30/17 15:12 Sputum - Expectorated Sputum - Final 12/27/17 21:10 Urine,Clean Catch Urine Culture - Final Pseudomonas Aeruginosa Laboratory WBC 9.2 X10^3/uL (3.6-10.0) 01/02/18 04:35 RBC 3.87 X10^6/uL (4.7-6.0) L 01/02/18 04:35 Hgb 10.5 g/dL (13.5-18.0) L 01/02/18 04:35 Hct 32.9 % (42.0-54.0) L 01/02/18 04:35 MCV 84.9 fL (80.0-100.0) 01/02/18 04:35 MCH 27.1 pg (27.0-34.0) 01/02/18 04:35 MCHC 31.9 g/dL (33.0-35.0) L 01/02/18 04:35 RDW 14.9 % (11.6-16.5) 01/02/18 04:35 Plt Count 209 X10^3/uL (150.0-450.0) 01/02/18 04:35 MPV 7.9 fL (7.4-11.0) 01/02/18 04:35 Neut % (Auto) 70.2 % (42.0-75.0) 01/02/18 04:35 Lymph % (Auto) 17.7 % (21.0-51.0) L 01/02/18 04:35 [place] % (Auto) 6.4 % (0.0-13.0) 01/02/18 04:35 Eos % (Auto) 4.9 % (0.9-2.9) H 01/02/18 04:35 Baso % (Auto) 0.8 % (0.2-1.0) 01/02/18 04:35 Neut # (Auto) 6.5 x10^3/uL (2.2-4.8) H 01/02/18 04:35 Lymph # (Auto) 1.6 X10^3/uL (1.3-2.9) 01/02/18 04:35 [place] # (Auto) 0.6 x10^3/uL (0.3-0.8) 01/02/18 04:35 Eos # (Auto) 0.5 x10^3/uL (0.0-0.2) H 01/02/18 04:35 Baso # (Auto) 0.1 X10^3/uL (0.0-0.1) 01/02/18 04:35 Absolute Nucleated RBC 0.0 /100WBC 01/02/18 04:35 Sample Site Right radial 01/01/18 05:49 ABG pH 7.260 (7.35-7.45) L 01/01/18 05:49 ABG pCO2 89.0 mmHg (35.0-45.0) H* 01/01/18 05:49 ABG pO2 79.0 mmHg (80.0-100.0) L 01/01/18 05:49 ABG HCO3 39.9 mmol/L (22-26) H* 01/01/18 05:49 ABG O2 Saturation 94.0 % (90-100) 01/01/18 05:49 ABG Base Excess 9.5 mmol/L (-2.0-2.0) H 01/01/18 05:49 Ishmael Test Pos 01/01/18 05:49 A-a Gradient 166.0 mmHg 01/01/18 05:49 FiO2 50.000 01/01/18 05:49 Blood Gas Comments Michelle well jts 01/01/18 05:49 Sodium 141 mmol/L (136-145) 01/02/18 04:35 Corrected Sodium 141 mmol/L (136-145) 01/02/18 04:35 Potassium 4.7 mmol/L (3.5-5.1) 01/02/18 04:35 Chloride 105 mmol/L (98-107) 01/02/18 04:35 Carbon Dioxide 31.2 mmol/L (21-32) 01/02/18 04:35 BUN 38 mg/dL (7-18) H 01/02/18 04:35 Creatinine 1.86 mg/dL (0.70-1.30) H 01/02/18 04:35 Est GFR (MDRD) Af Amer 48 (>60) L 01/02/18 04:35 Est GFR (MDRD) Non-Af 40 (>60) L 01/02/18 04:35 Glucose 120 mg/dL (65-99) H 01/02/18 04:35 POC Glucose (mg/dL) 125 mg/dL (65-99) H 01/02/18 20:10 Calcium 8.5 mg/dL (8.5-10.1) 01/02/18 04:35 Corrected Calcium 9.9 mg/dL (8.5-10.1) 01/02/18 04:35 Total Bilirubin 0.40 mg/dL (0.2-1.0) 01/02/18 04:35 AST 54 Units/L (15-37) H 01/02/18 04:35 ALT 116 Units/L (12-78) H 01/02/18 04:35 Alkaline Phosphatase 165 Units/L (46-116) H 01/02/18 04:35 Total Protein 7.2 g/dL (6.4-8.2) 01/02/18 04:35 Albumin 2.3 g/dL (3.4-5.0) L 01/02/18 04:35 Globulin 4.9 g/dL (2.5-4.5) H 01/02/18 04:35 Albumin/Globulin Ratio 0.5 Ratio (1.1-2.1) L 01/02/18 04:35 Specimen Type Clean catch urine 12/27/17 21:10 Urine Color Yellow (YELLOW) 12/27/17 21:10 Urine Appearance Hazy (CLEAR) 12/27/17 21:10 Urine pH 5.0 (5.0 - 8.0) 12/27/17 21:10 Ur Specific [place] 1.010 (1.000-1.030) 12/27/17 21:10 Urine Protein 3+ (NEGATIVE) 12/27/17 21:10 Urine Glucose (UA) Negative (NEGATIVE) 12/27/17 21:10 Urine Ketones Negative (NEGATIVE) 12/27/17 21:10 Urine Occult Blood Negative (NEGATIVE) 12/27/17 21:10 Urine Nitrite Negative (NEGATIVE) 12/27/17 21:10 Urine Bilirubin Negative (NEGATIVE) 12/27/17 21:10 Urine Urobilinogen Normal (NORMAL) 12/27/17 21:10 Ur Leukocyte Esterase 3+ (NEGATIVE) 12/27/17 21:10 Urine RBC 3-5 /HPF (NONE SEEN) 12/27/17 21:10 Urine WBC 20-30 /HPF (NONE SEEN) 12/27/17 21:10 Ur Squamous Epith Cells Rare /HPF (NEGATIVE) 12/27/17 21:10 Urine Bacteria Trace /HPF (NEGATIVE) 12/27/17 21:10 Urine Mucus Few /HPF (NEGATIVE) 12/27/17 21:10 Ur Culture Indicated? Yes/culture set up 12/27/17 21:10 Stool Description 8g,unformed,mucoid, 01/02/18 16:59 Stl Occult Blood (IFOB) Positive (NEGATIVE) A 12/30/17 06:35 Stool for White Cells Negative (NEGATIVE) 01/02/18 16:59 Stl C. diff Tox B Gene Negative (NEGATIVE) 01/02/18 16:59 Stl C. diff [id number] Negative (NEGATIVE) 01/02/18 16:59 Cryptosporid parvum Ag Negative (NEGATIVE) 01/02/18 16:59 E. histolytica Antigen Negative (NEGATIVE) 01/02/18 16:59 Giardia lamblia Ag Negative (NEGATIVE) 01/02/18 16:59
[2018-01-03] MEDS: DUONEB 0.5 MG/3 MG NEB SCH ×4 (00:45→12:23)
[2018-01-03] MEDS: VALIUM PO SCH ×2 (05:36→13:01)
[2018-01-03 06:19] LABS: BASOPHILS # (AUTO) 0.1 X10^3/uL (0.0-0.1); BASOPHILS % (AUTO) 0.7 % (0.2-1.0); EOSINOPHILS # (AUTO) 0.4 x10^3/uL (0.0-0.2); EOSINOPHILS % (AUTO) 5.4 % (0.9-2.9); HEMATOCRIT 33.1 % (42.0-54.0); HEMOGLOBIN 10.5 g/dL (13.5-18.0); LYMPHOCYTES # (AUTO) 1.3 X10^3/uL (1.3-2.9); LYMPHOCYTES % (AUTO) 17.5 % (21.0-51.0); MEAN CORPUSCULAR HEMOGLOBIN 26.8 pg (27.0-34.0); MEAN CORPUSCULAR HGB CONC 31.7 g/dL (33.0-35.0); MEAN CORPUSCULAR VOLUME 84.6 fL (80.0-100.0); MEAN PLATELET VOLUME 7.6 fL (7.4-11.0); MONOCYTES # (AUTO) 0.6 x10^3/uL (0.3-0.8); MONOCYTES % (AUTO) 7.7 % (0.0-13.0); NEUTROPHILS # (AUTO) 4.9 x10^3/uL (2.2-4.8); NEUTROPHILS % (AUTO) 68.7 % (42.0-75.0); PLATELET COUNT 223 X10^3/uL (150.0-450.0); RED BLOOD COUNT 3.91 X10^6/uL (4.7-6.0); RED CELL DISTRIBUTION WIDTH 14.8 % (11.6-16.5); WHITE BLOOD COUNT 7.2 X10^3/uL (3.6-10.0)
[2018-01-03 06:56] LABS: ALANINE AMINOTRANSFERASE 82 Units/L (12-78); ALKALINE PHOSPHATASE 155 Units/L (46-116); ASPARTATE AMINO TRANSFERASE 37 Units/L (15-37); BLOOD UREA NITROGEN 26 mg/dL (7-18); CALCIUM 8.3 mg/dL (8.5-10.1); CARBON DIOXIDE 31.5 mmol/L (21-32); CHLORIDE 108 mmol/L (98-107); COR CA(FOR HYPOALB) 9.9 mg/dL (8.5-10.1); COR NA(FOR HYPERGLY) 144 mmol/L (136-145); CREATININE 1.25 mg/dL (0.70-1.30); SODIUM 144 mmol/L (136-145); TOTAL PROTEIN 6.6 g/dL (6.4-8.2); eGFR BLACK RACES > 60 (>60); eGFR NON BLACK RACES > 60 (>60)
[2018-01-03] MEDS: ROBITUSSIN DM PO SCH ×2 (09:32→13:01)
[2018-01-03] MEDS: ZITHROMAX INJ 500 MG VIAL 500 MG in NS 250 ML IV 250 ML IV SCH (09:32)
[2018-01-03] MEDS: MERREM VIAL 1 GM in NS 100 ML IV + SPIKE MINIBAG* 100 ML IV SCH (12:00)
[2018-01-03 17:08] VITALS: BP 136/76
== END 2018-01-03 14:25 | DRG 202 ==
LOC: MED/SURG 11:44 → UNDOADMIN 11:44 → MED/SURG 13:45
PROVIDERS: ADMIT Internal Medicine; ATTEND Internal Medicine
DX: J20.8 Acute bronchitis due to other specified organisms (principal); J18.8 Other pneumonia, unspecified organism; N39.0 Urinary tract infection, site not specified; Z79.899 Other long term (current) drug therapy; R06.2 Wheezing; N18.9 Chronic kidney disease, unspecified; I50.9 Heart failure, unspecified; R53.1 Weakness; I10 Essential (primary) hypertension; E11.65 Type 2 diabetes mellitus with hyperglycemia; K21.9 Gastro-esophageal reflux disease without esophagitis; B96.5 Pseudomonas (aeruginosa) (mallei) (pseudomallei) as the cause of diseases classified elsewhere; A04.5 Campylobacter enteritis; R26.89 Other abnormalities of gait and mobility
CPT/HCPCS: 36415; 36600; 71045; 71250; 80053; 81001; 82274; 82803; 83630; 85025; 87040; 87045; 87070; 87086; 87088; 87186; 87205; 87328; 87329; 87336; 87427; 87449; 87493; 93005; 93010; 94640; 94660; 94669; 94760; 96365; 96374; A4222; A4618; A7030; J0456; J1335; J1815; J1940; J2185; J2405; J3490; J7042; J7608; J7620

== ENCOUNTER 2019-03-24 10:13 | Inpatient (IN) ==
[~2019-03-24 10:13] MED LIST: ALPHAGAN 0.2% OPHTH SOLN ONE; AQUAPHOR ONE; PRED FORTE 1 % ONE
[2019-03-24] MEDS ORDERED: HumuLIN R SUBCUT PRN (11:16)
[2019-03-24 11:42] VITALS: BMI 44.7
[2019-03-24 12:04] LABS: BASOPHILS # (AUTO) 0.1 X10^3/uL (0.0-0.1); BASOPHILS % (AUTO) 0.9 % (0.2-1.0); EOSINOPHILS # (AUTO) 0.3 x10^3/uL (0.0-0.2); HEMATOCRIT 38.2 % (42.0-54.0); HEMOGLOBIN 12.3 g/dL (13.5-18.0); LYMPHOCYTES # (AUTO) 2.1 X10^3/uL (1.3-2.9); LYMPHOCYTES % (AUTO) 19.1 % (21.0-51.0); MEAN CORPUSCULAR HEMOGLOBIN 27.6 pg (27.0-34.0); MEAN CORPUSCULAR HGB CONC 32.1 g/dL (33.0-35.0); MEAN CORPUSCULAR VOLUME 85.8 fL (80.0-100.0); MEAN PLATELET VOLUME 7.2 fL (7.4-11.0); MONOCYTES # (AUTO) 0.6 x10^3/uL (0.3-0.8); MONOCYTES % (AUTO) 5.3 % (0.0-13.0); NEUTROPHILS # (AUTO) 7.7 x10^3/uL (2.2-4.8); NEUTROPHILS % (AUTO) 71.7 % (42.0-75.0); PLATELET COUNT 272 X10^3/uL (150.0-450.0); RED BLOOD COUNT 4.46 X10^6/uL (4.7-6.0); RED CELL DISTRIBUTION WIDTH 15.1 % (11.6-16.5); WHITE BLOOD COUNT 10.8 X10^3/uL (3.6-10.0)
[2019-03-24 12:23] LABS: ALBUMIN 2.6 g/dL (3.4-5.0); CALCIUM 9.4 mg/dL (8.5-10.1); COR CA(FOR HYPOALB) 10.5 mg/dL (8.5-10.1); CREATININE 2.29 mg/dL (0.70-1.30); TOTAL PROTEIN 7.8 g/dL (6.4-8.2)
[2019-03-24 12:24] LABS: BILIRUBIN,URINE NEGATIVE (NEGATIVE); BLOOD/HEMOGLOBIN,URINE 1+ (NEGATIVE); GLUCOSE, URINE NEGATIVE (NEGATIVE); KETONES,URINE NEGATIVE (NEGATIVE); LEUKOCYTE ESTERASE ,URINE 3+ (NEGATIVE); NITRITES,URINE NEGATIVE (NEGATIVE); PROTEIN,URINE 4+ (NEGATIVE); UROBILINOGEN,URINE NORMAL (NORMAL)
[2019-03-24 12:27] LABS: LACTIC ACID 0.6 mmol/L (0.4-2.0)
[2019-03-24 12:38] LABS: APPEARANCE,URINE CLEAR (CLEAR); COLOR,URINE YELLOW (YELLOW)
[2019-03-24] MEDS: ZOSYN VIAL 3.375 GRAMS 3.375 G in NS 100 ML IV + SPIKE MINIBAG* 100 ML IV SCH ×2 (12:40→20:25)
[2019-03-24] MEDS: NS 1000 ML 1,000 ML IV SCH ×2 (12:40→20:24)
[2019-03-24 13:02] LABS: AMORPHOUS SEDIMENT,UR TRACE /HPF (NEGATIVE); RBC,URINE 0-2 /HPF (NONE SEEN); SQUAMOUS EPITHELIAL CELL,UR FEW /HPF (NEGATIVE)
[2019-03-24 13:03] LABS: BACTERIA,URINE NEGATIVE /HPF (NEGATIVE)
[2019-03-24] MEDS ORDERED: ZOFRAN TAB 4 MG PO PRN (18:37)
--- NOTE | 2019-03-24 19:44 | DR.H&P ---
H&P - History & Physical for Day of: H&P Date: 03/24/19 - Chief Complaint Chief Complaint: DISORIENTED, WEAK - History of Present Illness History of Present Illness: IS A 59 YEAR OLD PATIENT OF . HE IS A RESIDENT OF [facility]. [facility] STAFF REPORTS THAT HE HAS BEEN DISORIENTED AND WEAK FOR THE PAST FEW DAYS. AN OUTPATINET URINALYSIS WAS OBTAINED ON 03/21/19. IT REVEALED: WBC 10-20, RBC 3-5, LEUKOCYTES 3+, BACTERIA 1+. URINE CULTURE WAS REPORTED TODAY. IT WAS POSITIVE FOR GROWHT OF PSEUDOMONAS AERUGINOSA. IT IS ONLY SENSITIVE TO ZOSYN. PATIENT HAD BEEN RECEIVING INVANZ FOR THE PAST WEEK. HE WAS ADMITTED FOR FURTHER EVALUATION AND TREATMENT OF URINARY TRACT INFECTION DUE TO PSEUDOMONAS AND DEHYDRATION. ON ARRIVAL TO THE HOSPITAL, LABS WERE OBTAINED. ABNORMAL LAB VALUES INCLUDE THE FOLLOWING: RBC 4.57, HGB 12.7, HCT 39.0, POTASSIUM 5.2, BUN 43, CREATININE 2.29, GLUCOSE 125, ALK PHOS 160, ALBUMIN 2.6, GLOBULIN 5.2. A URINALYSIS WAS REPEATED. IT REVEALED: WBC 20-30, RBC 0-2, LEUKOCYTES 3+, BACTERIA NEGATIVE. BLOOD CULTURES OBTAINED. HE WAS STARTED ON NORMAL SALINE AT 80ML/HR AND ZOSYN 3.375G IV TID. OTHERWISE, WE PLAN TO FOLLOW UP WITH AM LABS AND CONTINUE TO MONITOR. - Past Medical History Past Medical History: Hypertension, Diabetes, Depression, GERD, Arthritis - Past Surgical History Surgical History: Unknown Additional Surgical History: REMOVAL OF RIGHT KIDNEY - Family History Family Medical History: Diabetes Mellitus, Hypertension - Social History Does patient currently use any type of tobacco product: No Have you used tobacco products in the last 12 months: No Type of Tobacco Use: None Does any household member use tobacco: No Alcohol Use: None Drug Use: None - Medications Home Medications: No Known Drug Allergies [NKDA] Allergy (Verified 03/24/19 11:17) CONTINUE taking the following medications amoxicillin-pot clavulanate [Augmentin] 1 tab PO BID 03/24/19 [History] atorvastatin [Lipitor] 10 mg PO HS 03/24/19 [History] atropine 1 drp OPHTHALMIC (EYE) DAILY 03/24/19 [History] brimonidine 1 drp OPHTHALMIC (EYE) TID 03/24/19 [History] carvedilol [Coreg] 25 mg PO BID 03/24/19 [History] cetirizine [Zyrtec] 5 mg PO HS 03/24/19 [History] clonidine HCl 0.1 mg PO BID 03/24/19 [History] furosemide [Lasix] 20 mg PO HS 03/24/19 [History] furosemide [Lasix] 40 mg PO DAILY 03/24/19 [History] insulin detemir U-100 [Levemir U-100 Insulin] 50 unit SUBCUT HS 03/24/19 [History] insulin detemir U-100 [Levemir U-100 Insulin] 60 units SUBCUT DAILY 03/24/19 [History] insulin regular human [Novolin R Regular U-100 Insuln] 1 unit SUBCUT PRN PRN 03/24/19 [History] ondansetron HCl [Zofran] 4 mg PO PRN PRN 03/24/19 [History] prednisolone acetate 1 drp OPHTHALMIC (EYE) BID 03/24/19 [History] - Review of Systems Constitutional: Fever, Weakness Eyes: No Symptoms Reported ENT: No Symptoms Reported Respiratory: No Symptoms Reported Cardiovascular: No Symptoms Reported Gastrointestinal: Abdominal Pain Genitourinary: No Symptoms Reported Musculoskeletal: No Symptoms Reported Skin: No Symptoms Reported Neurological: Weakness, Confusion - Physical Exam Vital Signs: Temperature 97.9 F Pulse Rate [Left Radial] 94 Respiratory Rate 20 Blood Pressure [Right Arm] 142/68 Blood Pressure [Left Arm] 154/70 Blood Pressure 142/68 O2 Sat by Pulse Oximetry 94 Oriented: Person Eyes: Normal Ear: Normal Nose: Normal Throat: Normal Respiratory: Diminished Throughout Cardiovascular: Normal. negative: S3, S4, Murmur : Normal Auscultation: Bowel Sounds: Normal Palpation: Normal Tenderness: Suprapubic, Mild. negative: Rebound, Guarding, Rigidity Skin: Decreased Turgur Musculoskeletal: Normal Psychiatric: Normal Mood Description: Calm Affect: Normal Speech Pattern: Inappropriate - Assessment/Plan (1) Urinary tract infection Qualifiers: Urinary tract infection type: acute cystitis Hematuria presence: without hematuria Qualified Code(s): N30.00 - Acute cystitis without hematuria Status: Acute Plan: ZOSYN 3.375G IV TID, CONTINUE TO MONITOR (2) Dehydration Status: Acute Plan: NORMAL SALINE AT 80ML/HR, CONTINUE TO MONITOR - Allergies Allergies/Adverse Reactions: Allergies Allergy/AdvReac Type Severity Reaction Status Date / Time No Known Drug Allergies Allergy Verified 03/24/19 11:17 [NKDA]
[2019-03-24] MEDS: FLONASE NASAL SPRAY ENOSTRIL SCH (20:00)
[2019-03-24] MEDS: BUSPAR PO SCH (20:25)
[2019-03-24] MEDS: COLACE CAP 100 MG PO SCH (20:26)
[2019-03-24] MEDS: MAG-OX TAB PO SCH (20:26)
[2019-03-24] MEDS: PEPCID TAB 20 MG PO SCH (20:26)
[2019-03-24] MEDS: LIPITOR TAB 10 MG PO SCH (20:26)
[2019-03-24] MEDS: COREG TAB 25 MG PO SCH (20:26)
[2019-03-24] MEDS: REQUIP PO SCH (20:26)
[2019-03-24] MEDS: CATAPRES TAB 0.1 MG PO SCH (20:27)
[2019-03-24] MEDS: ZyrTEC TAB 10 MG PO SCH (20:27)
[2019-03-24] MEDS: NORCO 5/325 MG TAB PO PRN (20:27)
[2019-03-24] MEDS: SNACK - Diabetic Appropriate PO SCH (20:30)
[2019-03-24] MEDS: AQUAPHOR TOP SCH ×2 (20:30→21:13)
[2019-03-24] MEDS: CARDIZEM CD 360 MG PO SCH (20:40)
[2019-03-24] MEDS: PRED FORTE 1 % OP SCH (21:14)
[2019-03-24] MEDS: ALPHAGAN 0.2% OPHTH SOLN OP SCH (21:14)
[2019-03-25] MEDS: NS 1000 ML 1,000 ML IV SCH ×2 (00:29→12:58)
[2019-03-25 05:23] LABS: BASOPHILS # (AUTO) 0.1 X10^3/uL (0.0-0.1); EOSINOPHILS # (AUTO) 0.4 x10^3/uL (0.0-0.2); EOSINOPHILS % (AUTO) 3.7 % (0.9-2.9); HEMATOCRIT 35.7 % (42.0-54.0); HEMOGLOBIN 11.5 g/dL (13.5-18.0); LYMPHOCYTES % (AUTO) 20.2 % (21.0-51.0); MEAN CORPUSCULAR HEMOGLOBIN 27.7 pg (27.0-34.0); MEAN CORPUSCULAR HGB CONC 32.2 g/dL (33.0-35.0); MEAN CORPUSCULAR VOLUME 86.1 fL (80.0-100.0); MEAN PLATELET VOLUME 7.9 fL (7.4-11.0); MONOCYTES # (AUTO) 0.6 x10^3/uL (0.3-0.8); MONOCYTES % (AUTO) 5.7 % (0.0-13.0); NEUTROPHILS # (AUTO) 6.9 x10^3/uL (2.2-4.8); NEUTROPHILS % (AUTO) 69.4 % (42.0-75.0); PLATELET COUNT 244 X10^3/uL (150.0-450.0); RED BLOOD COUNT 4.15 X10^6/uL (4.7-6.0); RED CELL DISTRIBUTION WIDTH 14.9 % (11.6-16.5); WHITE BLOOD COUNT 9.9 X10^3/uL (3.6-10.0)
[2019-03-25 05:47] LABS: ALBUMIN 2.3 g/dL (3.4-5.0); CALCIUM 8.7 mg/dL (8.5-10.1); CARBON DIOXIDE 29.8 mmol/L (21-32); COR CA(FOR HYPOALB) 10.1 mg/dL (8.5-10.1); CREATININE 2.21 mg/dL (0.70-1.30); TOTAL PROTEIN 6.7 g/dL (6.4-8.2)
[2019-03-25] MEDS: ALPHAGAN 0.2% OPHTH SOLN OP SCH ×3 (06:04→21:17)
[2019-03-25] MEDS: COLACE CAP 100 MG PO SCH (08:46)
[2019-03-25] MEDS: CATAPRES TAB 0.1 MG PO SCH ×2 (08:46→21:14)
[2019-03-25] MEDS: CARDIZEM CD 360 MG PO SCH (08:46)
[2019-03-25] MEDS: COREG TAB 25 MG PO SCH ×2 (08:46→20:58)
[2019-03-25] MEDS: BUSPAR PO SCH ×2 (08:46→21:15)
[2019-03-25] MEDS: ISOPTO ATROPINE OP SCH (08:47)
[2019-03-25] MEDS: PEPCID TAB 20 MG PO SCH ×2 (08:47→21:15)
[2019-03-25] MEDS: FLONASE NASAL SPRAY ENOSTRIL SCH (08:47)
[2019-03-25] MEDS: PRED FORTE 1 % OP SCH ×2 (08:47→20:57)
[2019-03-25] MEDS: MAG-OX TAB PO SCH ×2 (08:47→20:58)
[2019-03-25] MEDS: ZYLOPRIM PO SCH (08:48)
[2019-03-25] MEDS: REQUIP PO SCH ×2 (08:48→21:15)
[2019-03-25] MEDS: ZOSYN VIAL 3.375 GRAMS 3.375 G in NS 100 ML IV + SPIKE MINIBAG* 100 ML IV SCH ×2 (08:48→20:57)
[2019-03-25] MEDS ORDERED: VITAMIN B COMPLEX PO SCH (09:00)
[2019-03-25] MEDS: NORCO 5/325 MG TAB PO PRN ×2 (10:25→21:16)
[2019-03-25] MEDS: SNACK - Diabetic Appropriate PO SCH (20:47)
[2019-03-25] MEDS: ZyrTEC TAB 10 MG PO SCH (21:01)
[2019-03-25] MEDS: AQUAPHOR TOP SCH (21:14)
[2019-03-25] MEDS: LIPITOR TAB 10 MG PO SCH (21:15)
[2019-03-26] MEDS: NS 1000 ML 1,000 ML IV SCH ×5 (00:11→20:32)
[2019-03-26 05:37] LABS: BASOPHILS # (AUTO) 0.1 X10^3/uL (0.0-0.1); EOSINOPHILS # (AUTO) 0.3 x10^3/uL (0.0-0.2); EOSINOPHILS % (AUTO) 2.8 % (0.9-2.9); HEMATOCRIT 36.5 % (42.0-54.0); HEMOGLOBIN 11.5 g/dL (13.5-18.0); LYMPHOCYTES # (AUTO) 1.9 X10^3/uL (1.3-2.9); LYMPHOCYTES % (AUTO) 20.2 % (21.0-51.0); MEAN CORPUSCULAR HEMOGLOBIN 27.5 pg (27.0-34.0); MEAN CORPUSCULAR HGB CONC 31.5 g/dL (33.0-35.0); MEAN CORPUSCULAR VOLUME 87.5 fL (80.0-100.0); MEAN PLATELET VOLUME 7.8 fL (7.4-11.0); MONOCYTES # (AUTO) 0.5 x10^3/uL (0.3-0.8); MONOCYTES % (AUTO) 5.7 % (0.0-13.0); NEUTROPHILS # (AUTO) 6.6 x10^3/uL (2.2-4.8); NEUTROPHILS % (AUTO) 70.3 % (42.0-75.0); PLATELET COUNT 225 X10^3/uL (150.0-450.0); RED BLOOD COUNT 4.17 X10^6/uL (4.7-6.0); RED CELL DISTRIBUTION WIDTH 15.2 % (11.6-16.5); WHITE BLOOD COUNT 9.4 X10^3/uL (3.6-10.0)
[2019-03-26] MEDS: ALPHAGAN 0.2% OPHTH SOLN OP SCH ×3 (05:38→21:14)
[2019-03-26 05:56] LABS: ALBUMIN 2.3 g/dL (3.4-5.0); CALCIUM 8.8 mg/dL (8.5-10.1); CARBON DIOXIDE 29.9 mmol/L (21-32); COR CA(FOR HYPOALB) 10.2 mg/dL (8.5-10.1); CREATININE 2.23 mg/dL (0.70-1.30); TOTAL PROTEIN 6.7 g/dL (6.4-8.2)
[2019-03-26] MEDS: BUSPAR PO SCH ×2 (09:04→20:35)
[2019-03-26] MEDS: CARDIZEM CD 360 MG PO SCH (09:05)
[2019-03-26] MEDS: CATAPRES TAB 0.1 MG PO SCH ×2 (09:05→20:34)
[2019-03-26] MEDS: COREG TAB 25 MG PO SCH ×2 (09:05→20:35)
[2019-03-26] MEDS: ISOPTO ATROPINE OP SCH (09:05)
[2019-03-26] MEDS: COLACE CAP 100 MG PO SCH (09:05)
[2019-03-26] MEDS: FLONASE NASAL SPRAY ENOSTRIL SCH (09:05)
[2019-03-26] MEDS: MAG-OX TAB PO SCH ×2 (09:06→20:35)
[2019-03-26] MEDS: PRED FORTE 1 % OP SCH ×2 (09:06→20:36)
[2019-03-26] MEDS: REQUIP PO SCH ×2 (09:06→20:34)
[2019-03-26] MEDS: ZOSYN VIAL 3.375 GRAMS 3.375 G in NS 100 ML IV + SPIKE MINIBAG* 100 ML IV SCH ×2 (09:06→20:33)
[2019-03-26] MEDS: ZYLOPRIM PO SCH (09:06)
[2019-03-26] MEDS: PEPCID TAB 20 MG PO SCH ×2 (09:06→20:35)
--- NOTE | 2019-03-26 19:56 | PCM.PROG ---
Progress Note - Progress Note for Day of Date of Exam: 03/25/19 - Subjective Subjective: WAS ADMITTED ON 03/24/19 FOR DEHYDRATION AND A URINARY TRACT INFECTION. URINE CULTURE WAS POSITIVE FOR GROWTH OF PSEUDOMONAS. TODAY, HE IS ALERT AND ORIENTED, LYING IN BED ON MORNNG ROUNDS. HE IS NOTED WITH COMPLAINTS OF WEAKNESS AND ABDOMINAL PAIN. ON EXAMINATION, HEART IS REGULAR IN PEDRO PABLO AND RHYTHM. BILATERAL LUNGS ARE NOTED WITH DIMINISHED LUNG SOUNDS THROUGHOUT. ABDOMEN IS ROUND, SOFT, AND NOTED WITH MILD, SUPRAPUBIC TENDERNESS. NORMAL BOWEL SOUNDS NOTED IN ALL QUADRANTS. HIS VITALS THIS AM ARE: 98.1-90-18-91%-185/86. LABS WERE OBTAINED. ABNORMAL LAB VALUES INCLUDE THE FOLL OWING: RBC 4.15, HGB 11.5, HCT 35.7, POTASSIUM 5.4, CHLORIDE 108, BUN 38, CREATININE 2.21, GLUCOSE 122, ALK PHOS 132, ALBUMIN 2.3. BLOOD CULTURES ARE PENDING. HE IS CURRENTLY RECEIVING NORMAL SALINE AT 80ML/HR, ZOSYN 3.375G IV Q12H, AND HUMULIN R SLIDING SCALE, AND HOME MEDICATIONS WERE RESUMED. WE WILL CONTINUE WITH CURRENT PLAN OF CARE TODAY. OTHERWISE, WE WILL FOLLOW UP WITH AM LABS AND CONTINUE TO MONITOR. - Past Medical Family Social History Past Med/Fam/Surg Hx: No changes since H&P Allergies: Allergies No Known Drug Allergies [NKDA] Allergy (Verified 03/24/19 11:17) - Review of Systems ROS: No change since H&P - Vital Signs and I&O's Vital Signs: Temperature 98.3 F Pulse Rate [Left Radial] 72 Respiratory Rate 18 Blood Pressure [Right Arm] 149/63 Blood Pressure [Left Arm] 195/93 Blood Pressure 142/68 O2 Sat by Pulse Oximetry 93 Intake and Output: Intake & Output 03/24/19 03/25/19 03/26/19 03/27/19 11:59 11:59 11:59 11:59 Intake Total 820 / 820 2340 / 2340 1080 / 1080 Output Total 2850 / 2850 2650 / 2650 1400 / 1400 Balance -2030 / -2030 -310 / -310 -320 / -320 - Physical Exam Oriented: Normal Eyes: Normal Ear: Normal Nose: Normal Throat: Normal Cardiovascular: Normal. negative: S3, S4, Murmur : Normal Auscultation: Bowel Sounds: Normal Palpation: Normal Tenderness: Suprapubic, Mild. negative: Rebound, Guarding, Rigidity Skin: Decreased Turgur Musculoskeletal: Normal Psychiatric: Normal Mood Description: Calm Affect: Normal Speech Pattern: Appropriate, Unclear - Laboratory and Diagnostics Result Diagrams: 03/26/19 05:02 03/26/19 05:02 Labs: 03/24/19 11:50 Blood Blood Culture - Preliminary 03/24/19 11:45 Blood Blood Culture - Preliminary Laboratory WBC 9.4 X10^3/uL (3.6-10.0) 03/26/19 05:02 RBC 4.17 X10^6/uL (4.7-6.0) L 03/26/19 05:02 Hgb 11.5 g/dL (13.5-18.0) L 03/26/19 05:02 Hct 36.5 % (42.0-54.0) L 03/26/19 05:02 MCV 87.5 fL (80.0-100.0) 03/26/19 05:02 MCH 27.5 pg (27.0-34.0) 03/26/19 05:02 MCHC 31.5 g/dL (33.0-35.0) L 03/26/19 05:02 RDW 15.2 % (11.6-16.5) 03/26/19 05:02 Plt Count 225 X10^3/uL (150.0-450.0) 03/26/19 05:02 MPV 7.8 fL (7.4-11.0) 03/26/19 05:02 Neut % (Auto) 70.3 % (42.0-75.0) 03/26/19 05:02 Lymph % (Auto) 20.2 % (21.0-51.0) L 03/26/19 05:02 [place] % (Auto) 5.7 % (0.0-13.0) 03/26/19 05:02 Eos % (Auto) 2.8 % (0.9-2.9) 03/26/19 05:02 Baso % (Auto) 1.0 % (0.2-1.0) 03/26/19 05:02 Neut # (Auto) 6.6 x10^3/uL (2.2-4.8) H 03/26/19 05:02 Lymph # (Auto) 1.9 X10^3/uL (1.3-2.9) 03/26/19 05:02 [place] # (Auto) 0.5 x10^3/uL (0.3-0.8) 03/26/19 05:02 Eos # (Auto) 0.3 x10^3/uL (0.0-0.2) H 03/26/19 05:02 Baso # (Auto) 0.1 X10^3/uL (0.0-0.1) 03/26/19 05:02 Absolute Nucleated RBC 0.1 /100WBC 03/26/19 05:02 Sodium 143 mmol/L (136-145) 03/26/19 05:02 Corrected Sodium 144 mmol/L (136-145) 03/26/19 05:02 Potassium 5.9 mmol/L (3.5-5.1) H 03/26/19 05:02 Chloride 109 mmol/L (98-107) H 03/26/19 05:02 Carbon Dioxide 29.9 mmol/L (21-32) 03/26/19 05:02 BUN 35 mg/dL (7-18) H 03/26/19 05:02 Creatinine 2.23 mg/dL (0.70-1.30) H 03/26/19 05:02 Est GFR (MDRD) Af Amer 39 (>60) L 03/26/19 05:02 Est GFR (MDRD) Non-Af 32 (>60) L 03/26/19 05:02 Glucose 147 mg/dL (65-99) H 03/26/19 05:02 POC Glucose (mg/dL) 117 mg/dL (65-99) H 03/26/19 11:37 Lactic Acid 0.6 mmol/L (0.4-2.0) 03/24/19 11:45 Calcium 8.8 mg/dL (8.5-10.1) 03/26/19 05:02 Corrected Calcium 10.2 mg/dL (8.5-10.1) H 03/26/19 05:02 Total Bilirubin 0.20 mg/dL (0.2-1.0) 03/26/19 05:02 AST 13 Units/L (15-37) L 03/26/19 05:02 ALT 16 Units/L (12-78) 03/26/19 05:02 Alkaline Phosphatase 121 Units/L (46-116) H 03/26/19 05:02 Total Protein 6.7 g/dL (6.4-8.2) 03/26/19 05:02 Albumin 2.3 g/dL (3.4-5.0) L 03/26/19 05:02 Globulin 4.4 g/dL (2.5-4.5) 03/26/19 05:02 Albumin/Globulin Ratio 0.5 Ratio (1.1-2.1) L 03/26/19 05:02 Specimen Type Random urine 03/24/19 12:05 Urine Color Yellow (YELLOW) 03/24/19 12:05 Urine Appearance Clear (CLEAR) 03/24/19 12:05 Urine pH 6.0 (5.0 - 8.0) 03/24/19 12:05 Ur Specific [place] 1.015 (1.000-1.030) 03/24/19 12:05 Urine Protein 4+ (NEGATIVE) 03/24/19 12:05 Urine Glucose (UA) Negative (NEGATIVE) 03/24/19 12:05 Urine Ketones Negative (NEGATIVE) 03/24/19 12:05 Urine Occult Blood 1+ (NEGATIVE) 03/24/19 12:05 Urine Nitrite Negative (NEGATIVE) 03/24/19 12:05 Urine Bilirubin Negative (NEGATIVE) 03/24/19 12:05 Urine Urobilinogen Normal (NORMAL) 03/24/19 12:05 Ur Leukocyte Esterase 3+ (NEGATIVE) 03/24/19 12:05 Urine RBC 0-2 /HPF (NONE SEEN) 03/24/19 12:05 Urine WBC 20-30 /HPF (NONE SEEN) 03/24/19 12:05 Ur Squamous Epith Cells Few /HPF (NEGATIVE) 03/24/19 12:05 Amorphous Sediment Trace /HPF (NEGATIVE) 03/24/19 12:05 Urine Bacteria Negative /HPF (NEGATIVE) 03/24/19 12:05 Ur Culture Indicated? No/not indicated 03/24/19 12:05 - Plan (1) Urinary tract infection Status: Acute Qualifiers: Urinary tract infection type: acute cystitis Hematuria presence: without hematuria Qualified Code(s): N30.00 - Acute cystitis without hematuria Plan: ZOSYN 3.375G IV TID, CONTINUE TO MONITOR (2) Dehydration Status: Acute Plan: NORMAL SALINE AT 80ML/HR, CONTINUE TO MONITOR
--- NOTE | 2019-03-26 19:59 | PCM.PROG ---
Progress Note - Progress Note for Day of Date of Exam: 03/26/19 - Subjective Subjective: WAS ADMITTED ON 03/24/19 FOR DEHYDRATION AND A URINARY TRACT INFECTION. URINE CULTURE WAS POSITIVE FOR GROWTH OF PSEUDOMONAS. TODAY, HE IS ALERT AND ORIENTED, LYING IN BED ON MORNNG ROUNDS. HE IS NOTED WITH COMPLAINTS OF WEAKNESS AND ABDOMINAL PAIN. ON EXAMINATION, HEART IS REGULAR IN PEDRO PABLO AND RHYTHM. BILATERAL LUNGS ARE NOTED WITH DIMINISHED LUNG SOUNDS THROUGHOUT. ABDOMEN IS ROUND, SOFT, AND NOTED WITH MILD, SUPRAPUBIC TENDERNESS. NORMAL BOWEL SOUNDS NOTED IN ALL QUADRANTS. HIS VITALS THIS AM ARE: 97.5-51-18-98%-195/93. LABS WERE OBTAINED. ABNORMAL LAB VALUES INCLUDE THE FOLL OWING: RBC 4.17, HGB 11.5, HCT 36.5, POTASSIUM 5.9, CHLORIDE 109, BUN 35, CREATININE 2.23, GLUCOSE 147, AST 13, ALK PHOS 121, ALBUMIN 2.3. BLOOD CULTURES ARE PENDING. HE IS CURRENTLY RECEIVING NORMAL SALINE AT 80ML/HR, ZOSYN 3.375G IV Q12H, AND HUMULIN R SLIDING SCALE, AND HOME MEDICATIONS WERE RESUMED. WE WILL CONTINUE WITH CURRENT PLAN OF CARE TODAY. OTHERWISE, WE WILL FOLLOW UP WITH AM LABS AND CONTINUE TO MONITOR. - Past Medical Family Social History Past Med/Fam/Surg Hx: No changes since H&P Allergies: Allergies No Known Drug Allergies [NKDA] Allergy (Verified 03/24/19 11:17) - Review of Systems ROS: No change since H&P - Vital Signs and I&O's Vital Signs: Temperature 98.3 F Pulse Rate [Left Radial] 72 Respiratory Rate 18 Blood Pressure [Right Arm] 149/63 Blood Pressure [Left Arm] 195/93 Blood Pressure 142/68 O2 Sat by Pulse Oximetry 93 Intake and Output: Intake & Output 03/24/19 03/25/19 03/26/19 03/27/19 11:59 11:59 11:59 11:59 Intake Total 820 / 820 2340 / 2340 1080 / 1080 Output Total 2850 / 2850 2650 / 2650 1400 / 1400 Balance -2030 / -2030 -310 / -310 -320 / -320 - Physical Exam Oriented: Normal Eyes: Normal Ear: Normal Nose: Normal Throat: Normal Cardiovascular: Normal. negative: S3, S4, Murmur : Normal Auscultation: Bowel Sounds: Normal Tenderness: Suprapubic, Mild. negative: Rebound, Guarding, Rigidity Skin: Decreased Turgur Musculoskeletal: Normal Psychiatric: Normal Mood Description: Calm Affect: Normal Speech Pattern: Appropriate, Unclear - Laboratory and Diagnostics Result Diagrams: 03/26/19 05:02 03/26/19 05:02 Labs: 03/24/19 11:50 Blood Blood Culture - Preliminary 03/24/19 11:45 Blood Blood Culture - Preliminary Laboratory WBC 9.4 X10^3/uL (3.6-10.0) 03/26/19 05:02 RBC 4.17 X10^6/uL (4.7-6.0) L 03/26/19 05:02 Hgb 11.5 g/dL (13.5-18.0) L 03/26/19 05:02 Hct 36.5 % (42.0-54.0) L 03/26/19 05:02 MCV 87.5 fL (80.0-100.0) 03/26/19 05:02 MCH 27.5 pg (27.0-34.0) 03/26/19 05:02 MCHC 31.5 g/dL (33.0-35.0) L 03/26/19 05:02 RDW 15.2 % (11.6-16.5) 03/26/19 05:02 Plt Count 225 X10^3/uL (150.0-450.0) 03/26/19 05:02 MPV 7.8 fL (7.4-11.0) 03/26/19 05:02 Neut % (Auto) 70.3 % (42.0-75.0) 03/26/19 05:02 Lymph % (Auto) 20.2 % (21.0-51.0) L 03/26/19 05:02 [place] % (Auto) 5.7 % (0.0-13.0) 03/26/19 05:02 Eos % (Auto) 2.8 % (0.9-2.9) 03/26/19 05:02 Baso % (Auto) 1.0 % (0.2-1.0) 03/26/19 05:02 Neut # (Auto) 6.6 x10^3/uL (2.2-4.8) H 03/26/19 05:02 Lymph # (Auto) 1.9 X10^3/uL (1.3-2.9) 03/26/19 05:02 [place] # (Auto) 0.5 x10^3/uL (0.3-0.8) 03/26/19 05:02 Eos # (Auto) 0.3 x10^3/uL (0.0-0.2) H 03/26/19 05:02 Baso # (Auto) 0.1 X10^3/uL (0.0-0.1) 03/26/19 05:02 Absolute Nucleated RBC 0.1 /100WBC 03/26/19 05:02 Sodium 143 mmol/L (136-145) 03/26/19 05:02 Corrected Sodium 144 mmol/L (136-145) 03/26/19 05:02 Potassium 5.9 mmol/L (3.5-5.1) H 03/26/19 05:02 Chloride 109 mmol/L (98-107) H 03/26/19 05:02 Carbon Dioxide 29.9 mmol/L (21-32) 03/26/19 05:02 BUN 35 mg/dL (7-18) H 03/26/19 05:02 Creatinine 2.23 mg/dL (0.70-1.30) H 03/26/19 05:02 Est GFR (MDRD) Af Amer 39 (>60) L 03/26/19 05:02 Est GFR (MDRD) Non-Af 32 (>60) L 03/26/19 05:02 Glucose 147 mg/dL (65-99) H 03/26/19 05:02 POC Glucose (mg/dL) 117 mg/dL (65-99) H 03/26/19 11:37 Lactic Acid 0.6 mmol/L (0.4-2.0) 03/24/19 11:45 Calcium 8.8 mg/dL (8.5-10.1) 03/26/19 05:02 Corrected Calcium 10.2 mg/dL (8.5-10.1) H 03/26/19 05:02 Total Bilirubin 0.20 mg/dL (0.2-1.0) 03/26/19 05:02 AST 13 Units/L (15-37) L 03/26/19 05:02 ALT 16 Units/L (12-78) 03/26/19 05:02 Alkaline Phosphatase 121 Units/L (46-116) H 03/26/19 05:02 Total Protein 6.7 g/dL (6.4-8.2) 03/26/19 05:02 Albumin 2.3 g/dL (3.4-5.0) L 03/26/19 05:02 Globulin 4.4 g/dL (2.5-4.5) 03/26/19 05:02 Albumin/Globulin Ratio 0.5 Ratio (1.1-2.1) L 03/26/19 05:02 Specimen Type Random urine 03/24/19 12:05 Urine Color Yellow (YELLOW) 03/24/19 12:05 Urine Appearance Clear (CLEAR) 03/24/19 12:05 Urine pH 6.0 (5.0 - 8.0) 03/24/19 12:05 Ur Specific [place] 1.015 (1.000-1.030) 03/24/19 12:05 Urine Protein 4+ (NEGATIVE) 03/24/19 12:05 Urine Glucose (UA) Negative (NEGATIVE) 03/24/19 12:05 Urine Ketones Negative (NEGATIVE) 03/24/19 12:05 Urine Occult Blood 1+ (NEGATIVE) 03/24/19 12:05 Urine Nitrite Negative (NEGATIVE) 03/24/19 12:05 Urine Bilirubin Negative (NEGATIVE) 03/24/19 12:05 Urine Urobilinogen Normal (NORMAL) 03/24/19 12:05 Ur Leukocyte Esterase 3+ (NEGATIVE) 03/24/19 12:05 Urine RBC 0-2 /HPF (NONE SEEN) 03/24/19 12:05 Urine WBC 20-30 /HPF (NONE SEEN) 03/24/19 12:05 Ur Squamous Epith Cells Few /HPF (NEGATIVE) 03/24/19 12:05 Amorphous Sediment Trace /HPF (NEGATIVE) 03/24/19 12:05 Urine Bacteria Negative /HPF (NEGATIVE) 03/24/19 12:05 Ur Culture Indicated? No/not indicated 03/24/19 12:05 - Plan (1) Urinary tract infection Status: Acute Qualifiers: Urinary tract infection type: acute cystitis Hematuria presence: without hematuria Qualified Code(s): N30.00 - Acute cystitis without hematuria Plan: ZOSYN 3.375G IV TID, CONTINUE TO MONITOR (2) Dehydration Status: Acute Plan: NORMAL SALINE AT 80ML/HR, CONTINUE TO MONITOR
[2019-03-26] MEDS: SNACK - Diabetic Appropriate PO SCH (20:32)
[2019-03-26] MEDS: AQUAPHOR TOP SCH (20:32)
[2019-03-26] MEDS: LIPITOR TAB 10 MG PO SCH (20:34)
[2019-03-26] MEDS: NORCO 5/325 MG TAB PO PRN (20:35)
[2019-03-26] MEDS: ZyrTEC TAB 10 MG PO SCH (20:35)
[2019-03-27] MEDS: NS 1000 ML 1,000 ML IV SCH ×3 (05:32→14:53)
[2019-03-27] MEDS: ALPHAGAN 0.2% OPHTH SOLN OP SCH ×3 (05:33→21:03)
[2019-03-27 06:26] LABS: BASOPHILS # (AUTO) 0.1 X10^3/uL (0.0-0.1); BASOPHILS % (AUTO) 1.2 % (0.2-1.0); EOSINOPHILS # (AUTO) 0.4 x10^3/uL (0.0-0.2); EOSINOPHILS % (AUTO) 3.5 % (0.9-2.9); HEMATOCRIT 40.2 % (42.0-54.0); HEMOGLOBIN 12.6 g/dL (13.5-18.0); LYMPHOCYTES # (AUTO) 2.7 X10^3/uL (1.3-2.9); LYMPHOCYTES % (AUTO) 22.6 % (21.0-51.0); MEAN CORPUSCULAR HEMOGLOBIN 27.6 pg (27.0-34.0); MEAN CORPUSCULAR HGB CONC 31.4 g/dL (33.0-35.0); MEAN PLATELET VOLUME 8.2 fL (7.4-11.0); MONOCYTES # (AUTO) 0.8 x10^3/uL (0.3-0.8); MONOCYTES % (AUTO) 6.4 % (0.0-13.0); NEUTROPHILS % (AUTO) 66.3 % (42.0-75.0); PLATELET COUNT 186 X10^3/uL (150.0-450.0); RED BLOOD COUNT 4.57 X10^6/uL (4.7-6.0); RED CELL DISTRIBUTION WIDTH 15.5 % (11.6-16.5)
[2019-03-27 06:42] LABS: ALBUMIN 2.5 g/dL (3.4-5.0); CALCIUM 8.7 mg/dL (8.5-10.1); CARBON DIOXIDE 30.5 mmol/L (21-32); COR CA(FOR HYPOALB) 9.9 mg/dL (8.5-10.1); CREATININE 2.12 mg/dL (0.70-1.30); TOTAL PROTEIN 7.3 g/dL (6.4-8.2)
[2019-03-27 06:43] LABS: PLATELET MORPHOLOGY COMMENT NORMAL (NORMAL)
[2019-03-27] MEDS: ZOSYN VIAL 3.375 GRAMS 3.375 G in NS 100 ML IV + SPIKE MINIBAG* 100 ML IV SCH ×2 (08:30→20:59)
[2019-03-27] MEDS ORDERED: PHARMACY CONSULT - DOSE _____ XX SCH (09:00)
--- NOTE | 2019-03-27 09:45 | RAD ---
History: Chest pain and shortness of breath Study: Portable AP chest Comparison: November 17, 2018 Findings: There is vascular congestion. There is thickening of the minor fissure. There is streaky bibasilar infiltrates. There is limited inspiration overall. The heart size is prominent. There is no obvious pleural effusion. Impression: 1. Cardiomegaly and vascular congestion suggesting CHF with fluid in the minor fissure Reported By:
[2019-03-27] MEDS: COLACE CAP 100 MG PO SCH (10:13)
[2019-03-27] MEDS: CARDIZEM CD 360 MG PO SCH (10:13)
[2019-03-27] MEDS: MAG-OX TAB PO SCH ×2 (10:13→21:00)
[2019-03-27] MEDS: COREG TAB 25 MG PO SCH ×2 (10:14→21:01)
[2019-03-27] MEDS: BUSPAR PO SCH ×2 (10:14→21:00)
[2019-03-27] MEDS: REQUIP PO SCH ×2 (10:14→21:00)
[2019-03-27] MEDS: PEPCID TAB 20 MG PO SCH (10:14)
[2019-03-27] MEDS: ZYLOPRIM PO SCH (10:14)
[2019-03-27] MEDS: FLONASE NASAL SPRAY ENOSTRIL SCH (10:15)
[2019-03-27] MEDS: CATAPRES TAB 0.1 MG PO SCH ×2 (10:15→21:01)
[2019-03-27] MEDS: KAYEXALATE SUSP PO SCH ×2 (10:24→21:00)
[2019-03-27] MEDS: PRED FORTE 1 % OP SCH ×2 (10:31→21:02)
[2019-03-27] MEDS: ISOPTO ATROPINE OP SCH (10:33)
[2019-03-27] MEDS ORDERED: LASIX IVP ONE (10:45)
[2019-03-27 13:49] LABS: BILIRUBIN,URINE NEGATIVE (NEGATIVE); BLOOD/HEMOGLOBIN,URINE 4+ (NEGATIVE); GLUCOSE, URINE NEGATIVE (NEGATIVE); KETONES,URINE NEGATIVE (NEGATIVE); LEUKOCYTE ESTERASE ,URINE 3+ (NEGATIVE); NITRITES,URINE NEGATIVE (NEGATIVE); PROTEIN,URINE 3+ (NEGATIVE); UROBILINOGEN,URINE NORMAL (NORMAL)
[2019-03-27 13:56] LABS: AMORPHOUS SEDIMENT,UR 2+ /HPF (NEGATIVE); APPEARANCE,URINE HAZY (CLEAR); BACTERIA,URINE 2+ /HPF (NEGATIVE); COLOR,URINE PALE YELLOW (YELLOW); SQUAMOUS EPITHELIAL CELL,UR FEW /HPF (NEGATIVE)
[2019-03-27] MEDS: NORCO 5/325 MG TAB PO PRN (14:08)
[2019-03-27 19:02] LABS: BLOOD UREA NITROGEN 32 mg/dL (7-18); CALCIUM 9.5 mg/dL (8.5-10.1); CARBON DIOXIDE 30.2 mmol/L (21-32); CHLORIDE 108 mmol/L (98-107); CREATININE 2.08 mg/dL (0.70-1.30); SODIUM 142 mmol/L (136-145); TROPONIN I < 0.02 ng/mL (0-1.5); eGFR NON BLACK RACES 35 (>60)
[2019-03-27 19:06] LABS: ALANINE AMINOTRANSFERASE 16 Units/L (12-78); ALBUMIN 2.6 g/dL (3.4-5.0); ALKALINE PHOSPHATASE 137 Units/L (46-116); ASPARTATE AMINO TRANSFERASE 14 Units/L (15-37); CKMB % 3.3 % (<4); COR CA(FOR HYPOALB) 10.6 mg/dL (8.5-10.1); CREATINE KINASE 40 Units/L (39-308); CREATINE KINASE MB 1.3 ng/mL (0-4.0); TOTAL PROTEIN 7.6 g/dL (6.4-8.2)
[2019-03-27] MEDS: ZyrTEC TAB 10 MG PO SCH (20:59)
[2019-03-27] MEDS: LIPITOR TAB 10 MG PO SCH (21:00)
[2019-03-27] MEDS: AQUAPHOR TOP SCH (21:01)
[2019-03-27] MEDS: SNACK - Diabetic Appropriate PO SCH (21:01)
[2019-03-28] MEDS: NS 1000 ML 1,000 ML IV SCH ×3 (05:40→17:20)
[2019-03-28] MEDS: ALPHAGAN 0.2% OPHTH SOLN OP SCH ×3 (05:40→21:06)
[2019-03-28 06:04] LABS: BASOPHILS # (AUTO) 0.1 X10^3/uL (0.0-0.1); BASOPHILS % (AUTO) 0.8 % (0.2-1.0); EOSINOPHILS # (AUTO) 0.3 x10^3/uL (0.0-0.2); EOSINOPHILS % (AUTO) 3.2 % (0.9-2.9); HEMATOCRIT 36.3 % (42.0-54.0); HEMOGLOBIN 11.6 g/dL (13.5-18.0); LYMPHOCYTES # (AUTO) 1.4 X10^3/uL (1.3-2.9); LYMPHOCYTES % (AUTO) 13.7 % (21.0-51.0); MEAN CORPUSCULAR HEMOGLOBIN 27.8 pg (27.0-34.0); MEAN CORPUSCULAR VOLUME 86.9 fL (80.0-100.0); MEAN PLATELET VOLUME 7.7 fL (7.4-11.0); MONOCYTES # (AUTO) 0.7 x10^3/uL (0.3-0.8); MONOCYTES % (AUTO) 6.7 % (0.0-13.0); NEUTROPHILS % (AUTO) 75.6 % (42.0-75.0); PLATELET COUNT 197 X10^3/uL (150.0-450.0); RED BLOOD COUNT 4.18 X10^6/uL (4.7-6.0); WHITE BLOOD COUNT 10.6 X10^3/uL (3.6-10.0)
[2019-03-28 06:29] LABS: ALANINE AMINOTRANSFERASE 15 Units/L (12-78); ALBUMIN 2.4 g/dL (3.4-5.0); ALKALINE PHOSPHATASE 125 Units/L (46-116); ASPARTATE AMINO TRANSFERASE 16 Units/L (15-37); BLOOD UREA NITROGEN 29 mg/dL (7-18); CALCIUM 9.1 mg/dL (8.5-10.1); CARBON DIOXIDE 31.8 mmol/L (21-32); CHLORIDE 109 mmol/L (98-107); COR CA(FOR HYPOALB) 10.4 mg/dL (8.5-10.1); CREATININE 1.96 mg/dL (0.70-1.30); SODIUM 144 mmol/L (136-145); eGFR NON BLACK RACES 37 (>60)
[2019-03-28] MEDS: BUSPAR PO SCH ×2 (08:39→21:03)
[2019-03-28] MEDS: ZOSYN VIAL 3.375 GRAMS 3.375 G in NS 100 ML IV + SPIKE MINIBAG* 100 ML IV SCH ×2 (08:39→21:05)
[2019-03-28] MEDS: CARDIZEM CD 360 MG PO SCH (08:39)
[2019-03-28] MEDS: COREG TAB 25 MG PO SCH ×2 (08:40→21:03)
[2019-03-28] MEDS: CATAPRES TAB 0.1 MG PO SCH ×2 (08:40→21:03)
[2019-03-28] MEDS: COLACE CAP 100 MG PO SCH (08:40)
[2019-03-28] MEDS: MAG-OX TAB PO SCH ×2 (08:40→21:03)
[2019-03-28] MEDS: PRED FORTE 1 % OP SCH ×2 (08:40→21:05)
[2019-03-28] MEDS: ZYLOPRIM PO SCH (08:40)
[2019-03-28] MEDS: ISOPTO ATROPINE OP SCH (08:40)
[2019-03-28] MEDS: REQUIP PO SCH ×2 (08:40→21:03)
[2019-03-28] MEDS: FLONASE NASAL SPRAY ENOSTRIL SCH (08:41)
[2019-03-28] MEDS ORDERED: LASIX IVP ONE (08:59)
--- NOTE | 2019-03-28 09:47 | RAD ---
Portable chest Clinical indication: Altered mental status, shortness of breath, CHF Comparison: 12/23/2017, 11/17/2018, 03/27/2019. Findings: The heart remains enlarged and there is accentuation of the central pulmonary vasculature with cephalization of flow and peribronchial cuffing consistent with residual pulmonary edema. The degree of vascular congestion is marginally improved in the interim. Fluid is seen along the surface of the right minor fissure. No large pleural fluid collections are identified. There is chronic elevation of the right diaphragm. Accentuation of the hilar shadows may be due to pulmonary artery enlargement and or lymphadenopathy. Impression: Cardiomegaly with central vascular congestion and interstitial edema pattern consistent with congestive heart failure. Vascular congestion and interstitial edema are marginally improved in the interim. Chronic elevation of the right diaphragm Accentuation of the bilateral hilar shadows may be associated with pulmonary artery enlargement, hilar adenopathy, or combination of the above. Reported By:
--- NOTE | 2019-03-28 10:04 | CT ---
HISTORY: Altered mental status Study: CT HEAD WITHOUT CONTRAST Comparison: 08/18/2013 Technique: Multiple axial images of the brain were obtained from the skull base to the vertex without administration of IV contrast. Findings: No acute intracranial hemorrhage or extra-axial hematoma is identified. There is chronic encephalomalacia of the right frontal lobe approximating a chronic surgical defect related to partial right frontal craniectomy with reconstruction via implantation of foreign material, which abuts the outer edge of the right frontal lobe. Chronic periventricular and patchy subcortical white matter hypoattenuation are most likely attributable to chronic microangiopathic ischemic changes. Mild, generalized cortical volume loss is observed in the ventricular size is commensurate to the degree of cortical atrophy. No well defined, acute large artery territorial infarct is identified at this time. The imaged mastoid air cells and paranasal sinuses are predominantly clear. No acute calvarial defects are identified. IMPRESSION: Chronic encephalomalacia of the inferior right frontal lobe which may be posttraumatic in nature. Right frontal craniectomy defect with postsurgical changes of cranioplasty overlying the encephalomalacia site No acute intracranial abnormalities otherwise demonstrated. Chronic degenerative white matter hypoattenuation of the supratentorial brain most likely due to microangiopathy with associated cortical volume loss Individualized dose optimization techniques were utilized to reduce radiation dose through one or more of the following means: automated exposure control, adjustment of mA and/or KV according to patient size, or through use of iterative reconstruction technique. Reported By:
[2019-03-28] MEDS ORDERED: ZOFRAN INJ 4 MG VIAL IVP PRN (11:34)
[2019-03-28] MEDS ORDERED: ZOFRAN INJ 4 MG VIAL ONE (11:38)
--- NOTE | 2019-03-28 11:50 | US ---
History: Chronic renal failure Study: Renal ultrasound Comparison: July 11, 2015 Findings: The right kidney is surgically absent. The left kidney measures 13.7 x 8 x 7 cm with cortical thickness of 1.8 cm. The resistive index is 0.79. There is and upper pole cyst measuring 7.7 x 8 x 7.3 cm. There is no hydronephrosis. The urinary bladder appears empty. Impression: Large left renal simple cyst, otherwise unremarkable status post old right nephrectomy Reported By:
[2019-03-28 12:25] LABS: ABG BASE EXCESS 8.6 mmol/L (-2.0-2.0)
[2019-03-28 12:26] LABS: ABG ALLEN TEST POS
[2019-03-28] MEDS: MUCOMYST 20% 200 MG/ML NEB SCH ×3 (14:15→21:25)
[2019-03-28] MEDS: DUONEB 0.5 MG/3 MG NEB SCH ×3 (14:15→21:25)
[2019-03-28] MEDS: LOVENOX INJ 30 MG SYR SC SCH (17:41)
--- NOTE | 2019-03-28 17:48 | PCM.PROG ---
Progress Note - Progress Note for Day of Date of Exam: 03/28/19 - Subjective Subjective: Jose F is a 59-year-old white male who was admitted over the weekend with a urinary tract infection, failed outpatient treatment. The patient was noted to be disoriented and weak from the mcfp, which is not his normal disposition. This morning, the patients labs did reveal hyperkalemia with a potassium of 5.4 He has recently had worsening renal function, had been referred to a precision honer. The patients BUN was 29 and creatine was 1.96, which is a little bit better from admission. He did have repeat blood cultures and his last urine culture was prior to admission. The patient had been on some p.o. Augmentin. He is on Zosyn at this time, which we will continue. Pt continu es with some lethargy this am and increased SOB. CT head, renal us and echo ordered. Pt given Lasix IV x 1 dose yesterday with increased urine outpt, flores placed for strict i & os. ABG due to increased SOB, resp consult, supplemental o2 , duo nebs and bipap prn - Past Medical Family Social History Past Med/Fam/Surg Hx: No changes since H&P Allergies: Allergies No Known Drug Allergies [NKDA] Allergy (Verified 03/24/19 11:17) - Review of Systems ROS: No change since H&P - Vital Signs and I&O's Vital Signs: Temperature 98.5 F Pulse Rate [Right Radial] 64 Pulse Rate [Left Radial] 73 Pulse Rate 56 Respiratory Rate 20 Blood Pressure [Right Arm] 186/83 Blood Pressure [Left Arm] 153/73 Blood Pressure 142/68 O2 Sat by Pulse Oximetry 96 Intake and Output: Intake & Output 03/26/19 03/27/19 03/28/19 03/29/19 11:59 11:59 11:59 11:59 Intake Total 2340 / 2340 2178 / 2178 1855 / 1855 120 / 120 Output Total 2650 / 2650 2150 / 2150 3275 / 3275 1000 / 1000 Balance -310 / -310 / -1420 / -1420 -880 / -880 - Physical Exam Oriented: Normal Eyes: Normal Ear: Normal Nose: Normal Throat: Normal Respiratory: Diminished, Wheezes Cardiovascular: Normal, Edema. negative: S3, S4, Murmur : Normal Auscultation: Bowel Sounds: Normal Tenderness: Suprapubic, Mild. negative: Rebound, Guarding, Rigidity Skin: Decreased Turgur Musculoskeletal: Normal Psychiatric: Normal Mood Description: Calm Affect: Normal Speech Pattern: Unclear, Delayed - Laboratory and Diagnostics Result Diagrams: 03/28/19 05:40 03/28/19 05:40 Labs: 03/28/19 12:22 Sputum - Endotracheal Wash - Final 03/27/19 13:30 Urine,Catheterized Urine Culture - Preliminary 03/24/19 11:50 Blood Blood Culture - Preliminary 03/24/19 11:45 Blood Blood Culture - Preliminary Laboratory WBC 10.6 X10^3/uL (3.6-10.0) H 03/28/19 05:40 RBC 4.18 X10^6/uL (4.7-6.0) L 03/28/19 05:40 Hgb 11.6 g/dL (13.5-18.0) L 03/28/19 05:40 Hct 36.3 % (42.0-54.0) L 03/28/19 05:40 MCV 86.9 fL (80.0-100.0) 03/28/19 05:40 MCH 27.8 pg (27.0-34.0) 03/28/19 05:40 MCHC 32.0 g/dL (33.0-35.0) L 03/28/19 05:40 RDW 15.0 % (11.6-16.5) 03/28/19 05:40 Plt Count 197 X10^3/uL (150.0-450.0) 03/28/19 05:40 Plt Count Comment Adequate (ADEQUATE) 03/27/19 05:17 MPV 7.7 fL (7.4-11.0) 03/28/19 05:40 Neut % (Auto) 75.6 % (42.0-75.0) H 03/28/19 05:40 Lymph % (Auto) 13.7 % (21.0-51.0) L 03/28/19 05:40 [place] % (Auto) 6.7 % (0.0-13.0) 03/28/19 05:40 Eos % (Auto) 3.2 % (0.9-2.9) H 03/28/19 05:40 Baso % (Auto) 0.8 % (0.2-1.0) 03/28/19 05:40 Neut # (Auto) 8.0 x10^3/uL (2.2-4.8) H 03/28/19 05:40 Lymph # (Auto) 1.4 X10^3/uL (1.3-2.9) 03/28/19 05:40 [place] # (Auto) 0.7 x10^3/uL (0.3-0.8) 03/28/19 05:40 Eos # (Auto) 0.3 x10^3/uL (0.0-0.2) H 03/28/19 05:40 Baso # (Auto) 0.1 X10^3/uL (0.0-0.1) 03/28/19 05:40 Absolute Nucleated RBC 0.0 /100WBC 03/28/19 05:40 Total Counted Cancelled 03/27/19 05:17 Neutrophils % (Manual) Cancelled 03/27/19 05:17 Band Neutrophils % Cancelled 03/27/19 05:17 Lymphocytes % (Manual) Cancelled 03/27/19 05:17 Monocytes % (Manual) Cancelled 03/27/19 05:17 Eosinophils % (Manual) Cancelled 03/27/19 05:17 Basophils % (Manual) Cancelled 03/27/19 05:17 Metamyelocytes % Cancelled 03/27/19 05:17 Myelocytes % Cancelled 03/27/19 05:17 Promyelocytes % Cancelled 03/27/19 05:17 Nucleated RBCs Cancelled 03/27/19 05:17 Atypical Lymphocytes Cancelled 03/27/19 05:17 Blast Cells Cancelled 03/27/19 05:17 Smudge Cells Cancelled 03/27/19 05:17 Toxic Granulation Cancelled 03/27/19 05:17 Dohle Bodies Cancelled 03/27/19 05:17 Lucas Rods Cancelled 03/27/19 05:17 Plt Clumps, EDTA Few 03/27/19 05:17 Giant Platelets Cancelled 03/27/19 05:17 Plt Morphology Comment Normal (NORMAL) 03/27/19 05:17 RBC Morphology Normal (NORMAL) 03/27/19 05:17 Dimorphic RBCs Cancelled 03/27/19 05:17 Polychromasia Cancelled 03/27/19 05:17 Hypochromasia Cancelled 03/27/19 05:17 Poikilocytosis Cancelled 03/27/19 05:17 Basophilic Stippling Cancelled 03/27/19 05:17 Anisocytosis Cancelled 03/27/19 05:17 Microcytosis Cancelled 03/27/19 05:17 Macrocytosis Cancelled 03/27/19 05:17 Spherocytes Cancelled 03/27/19 05:17 Pappenheimer Bodies Cancelled 03/27/19 05:17 Sickle Cells Cancelled 03/27/19 05:17 Target Cells Cancelled 03/27/19 05:17 Tear Drop Cells Cancelled 03/27/19 05:17 Ovalocytes Cancelled 03/27/19 05:17 Stomatocytes Cancelled 03/27/19 05:17 Helmet Cells Cancelled 03/27/19 05:17 [place] Bodies Cancelled 03/27/19 05:17 [place] Rings Cancelled 03/27/19 05:17 [place] Cells Cancelled 03/27/19 05:17 Crenated Cell Cancelled 03/27/19 05:17 Acanthocytes (Spur) Cancelled 03/27/19 05:17 Rouleaux Cancelled 03/27/19 05:17 Schistocytes Cancelled 03/27/19 05:17 Sample Site Lr 03/28/19 12:15 ABG pH 7.210 (7.35-7.45) L 03/28/19 12:15 ABG pCO2 100.0 mmHg (35.0-45.0) H* 03/28/19 12:15 ABG pO2 64.0 mmHg (80.0-100.0) L 03/28/19 12:15 ABG HCO3 40.0 mmol/L (22-26) H* 03/28/19 12:15 ABG O2 Saturation 87.0 % (90-100) L 03/28/19 12:15 ABG Base Excess 8.6 mmol/L (-2.0-2.0) H 03/28/19 12:15 Ish[place]el Test Pos 03/28/19 12:15 A-a Gradient 153.0 mmHg 03/28/19 12:15 FiO2 48.0 03/28/19 12:15 Blood Gas Comments Michelle well cb 03/28/19 12:15 Sodium 144 mmol/L (136-145) 03/28/19 05:40 Corrected Sodium TNP 03/28/19 05:40 Potassium 5.4 mmol/L (3.5-5.1) H 03/28/19 05:40 Chloride 109 mmol/L (98-107) H 03/28/19 05:40 Carbon Dioxide 31.8 mmol/L (21-32) 03/28/19 05:40 BUN 29 mg/dL (7-18) H 03/28/19 05:40 Creatinine 1.96 mg/dL (0.70-1.30) H 03/28/19 05:40 Est GFR (MDRD) Af Amer 45 (>60) L 03/28/19 05:40 Est GFR (MDRD) Non-Af 37 (>60) L 03/28/19 05:40 Glucose 98 mg/dL (65-99) 03/28/19 05:40 POC Glucose (mg/dL) 105 mg/dL (65-99) H 03/28/19 16:20 Lactic Acid 0.6 mmol/L (0.4-2.0) 03/24/19 11:45 Calcium 9.1 mg/dL (8.5-10.1) 03/28/19 05:40 Corrected Calcium 10.4 mg/dL (8.5-10.1) H 03/28/19 05:40 Magnesium 2.3 mg/dL (1.7-2.9) 03/27/19 06:55 Total Bilirubin 0.30 mg/dL (0.2-1.0) 03/28/19 05:40 AST 16 Units/L (15-37) 03/28/19 05:40 ALT 15 Units/L (12-78) 03/28/19 05:40 Alkaline Phosphatase 125 Units/L (46-116) H 03/28/19 05:40 Creatine Kinase 40 Units/L (39-308) 03/27/19 18:30 CK-MB (CK-2) 1.3 ng/mL (0-4.0) 03/27/19 18:30 CK/CKMB % Calc 3.3 % (<4) 03/27/19 18:30 Troponin I < 0.02 ng/mL (0-1.5) 03/27/19 18:30 Total Protein 7.0 g/dL (6.4-8.2) 03/28/19 05:40 Albumin 2.4 g/dL (3.4-5.0) L 03/28/19 05:40 Globulin 4.6 g/dL (2.5-4.5) H 03/28/19 05:40 Albumin/Globulin Ratio 0.5 Ratio (1.1-2.1) L 03/28/19 05:40 Specimen Type Catherized urine 03/27/19 13:30 Urine Color Pale yellow (YELLOW) 03/27/19 13:30 Urine Appearance Hazy (CLEAR) 03/27/19 13:30 Urine pH 5.0 (5.0 - 8.0) 03/27/19 13:30 Ur Specific Wallace 1.015 (1.000-1.030) 03/27/19 13:30 Urine Protein 3+ (NEGATIVE) 03/27/19 13:30 Urine Glucose (UA) Negative (NEGATIVE) 03/27/19 13:30 Urine Ketones Negative (NEGATIVE) 03/27/19 13:30 Urine Occult Blood 4+ (NEGATIVE) 03/27/19 13:30 Urine Nitrite Negative (NEGATIVE) 03/27/19 13:30 Urine Bilirubin Negative (NEGATIVE) 03/27/19 13:30 Urine Urobilinogen Normal (NORMAL) 03/27/19 13:30 Ur Leukocyte Esterase 3+ (NEGATIVE) 03/27/19 13:30 Urine RBC 10-20 /HPF (NONE SEEN) 03/27/19 13:30 Urine WBC 5-10 /HPF (NONE SEEN) 03/27/19 13:30 Ur Squamous Epith Cells Few /HPF (NEGATIVE) 03/27/19 13:30 Amorphous Sediment 2+ /HPF (NEGATIVE) 03/27/19 13:30 Urine Bacteria 2+ /HPF (NEGATIVE) 03/27/19 13:30 Ur Culture Indicated? Yes/culture set up 03/27/19 13:30 - Plan (1) Urinary tract infection Status: Acute Qualifiers: Urinary tract infection type: acute cystitis Hematuria presence: without hematuria Qualified Code(s): N30.00 - Acute cystitis without hematuria Plan: ZOSYN 3.375G IV TID, CONTINUE TO MONITOR (2) CHF (congestive heart failure) Status: Acute Qualifiers: Qualified Code(s): I50.9 - Heart failure, unspecified Plan: iv lasix, echo. supplemental o2. strict i & os, flores cath care. bipap prn (3) Diabetes mellitus, type 2 Status: Chronic (4) Hypertension Status: Chronic (5) History of CVA (cerebrovascular accident) Status: Chronic (6) GERD (gastroesophageal reflux disease) Status: Chronic (7) SOB (shortness of breath) Status: Acute (8) CRF (chronic renal failure) Status: Chronic
[2019-03-28] MEDS ORDERED: LASIX IVP SCH (21:00)
[2019-03-28] MEDS: SNACK - Diabetic Appropriate PO SCH (21:01)
[2019-03-28] MEDS: AQUAPHOR TOP SCH (21:02)
[2019-03-28] MEDS: LIPITOR TAB 10 MG PO SCH (21:03)
[2019-03-28] MEDS: ZyrTEC TAB 10 MG PO SCH (21:03)
[2019-03-29 05:21] LABS: BASOPHILS # (AUTO) 0.1 X10^3/uL (0.0-0.1); BASOPHILS % (AUTO) 0.6 % (0.2-1.0); EOSINOPHILS # (AUTO) 0.3 x10^3/uL (0.0-0.2); EOSINOPHILS % (AUTO) 2.4 % (0.9-2.9); HEMATOCRIT 38.2 % (42.0-54.0); HEMOGLOBIN 11.8 g/dL (13.5-18.0); LYMPHOCYTES # (AUTO) 1.4 X10^3/uL (1.3-2.9); LYMPHOCYTES % (AUTO) 12.7 % (21.0-51.0); MEAN CORPUSCULAR HEMOGLOBIN 27.3 pg (27.0-34.0); MEAN CORPUSCULAR HGB CONC 30.8 g/dL (33.0-35.0); MEAN CORPUSCULAR VOLUME 88.5 fL (80.0-100.0); MONOCYTES # (AUTO) 0.8 x10^3/uL (0.3-0.8); MONOCYTES % (AUTO) 7.2 % (0.0-13.0); NEUTROPHILS # (AUTO) 8.7 x10^3/uL (2.2-4.8); NEUTROPHILS % (AUTO) 77.1 % (42.0-75.0); PLATELET COUNT 199 X10^3/uL (150.0-450.0); RED BLOOD COUNT 4.31 X10^6/uL (4.7-6.0); WHITE BLOOD COUNT 11.2 X10^3/uL (3.6-10.0)
[2019-03-29] MEDS: NS 1000 ML 1,000 ML IV SCH (05:29)
[2019-03-29] MEDS: ALPHAGAN 0.2% OPHTH SOLN OP SCH ×3 (05:30→23:34)
[2019-03-29 05:41] LABS: ALBUMIN 2.4 g/dL (3.4-5.0); CALCIUM 9.2 mg/dL (8.5-10.1); CARBON DIOXIDE 34.3 mmol/L (21-32); COR CA(FOR HYPOALB) 10.5 mg/dL (8.5-10.1); CREATININE 2.36 mg/dL (0.70-1.30); TOTAL PROTEIN 7.3 g/dL (6.4-8.2)
[2019-03-29 06:58] LABS: ABG BASE EXCESS 9.1 mmol/L (-2.0-2.0)
[2019-03-29 07:01] LABS: ABG HCO3 39.9 mmol/L (22-26)
[2019-03-29 07:02] LABS: ABG ALLEN TEST POS
[2019-03-29] MEDS: MUCOMYST 20% 200 MG/ML NEB SCH ×4 (09:09→21:10)
[2019-03-29] MEDS: DUONEB 0.5 MG/3 MG NEB SCH ×4 (09:09→21:10)
[2019-03-29] MEDS ORDERED: NS 1/2 1000 ML IV 1,000 ML IV SCH (10:00)
[2019-03-29] MEDS: BUSPAR PO SCH ×2 (10:45→23:33)
[2019-03-29] MEDS: CARDIZEM CD 360 MG PO SCH (10:46)
[2019-03-29] MEDS: CATAPRES TAB 0.1 MG PO SCH ×2 (10:46→23:41)
[2019-03-29] MEDS: COLACE CAP 100 MG PO SCH (10:46)
[2019-03-29] MEDS: FLONASE NASAL SPRAY ENOSTRIL SCH (10:47)
[2019-03-29] MEDS: MAG-OX TAB PO SCH ×2 (10:47→23:42)
[2019-03-29] MEDS: PRED FORTE 1 % OP SCH ×2 (10:47→23:41)
[2019-03-29] MEDS: COREG TAB 25 MG PO SCH ×2 (10:47→23:42)
[2019-03-29] MEDS: ISOPTO ATROPINE OP SCH (10:47)
[2019-03-29] MEDS: ZYLOPRIM PO SCH (10:48)
[2019-03-29] MEDS: REQUIP PO SCH ×2 (10:48→23:41)
[2019-03-29] MEDS ORDERED: NS 1/2 1000 ML IV 1,000 ML ONE (10:56)
[2019-03-29] MEDS: LOVENOX INJ 30 MG SYR SC SCH (11:06)
[2019-03-29] MEDS: ZOSYN VIAL 3.375 GRAMS 3.375 G in NS 100 ML IV + SPIKE MINIBAG* 100 ML IV SCH ×2 (11:07→21:22)
--- NOTE | 2019-03-29 11:35 | RAD ---
History: Shortness of breath Study: Portable AP chest Comparison: Yesterday Findings: The patient is rotated to the right. The right costophrenic angle is excluded from view. There is moderate cardiomegaly with persistent vascular congestion. There is unchanged elevation of the right hemidiaphragm. No obvious pleural effusion is demonstrated. Impression: Persistent unchanged findings of CHF Reported By:
[2019-03-29] MEDS ORDERED: LASIX IVP SCH ×2 (13:00→22:00)
[2019-03-29 14:09] LABS: ABG BASE EXCESS 7.5 mmol/L (-2.0-2.0)
[2019-03-29 14:10] LABS: ABG ALLEN TEST POS; ABG HCO3 37.7 mmol/L (22-26)
[2019-03-29] MEDS ORDERED: PHARMACY CONSULT - DOSE _____ XX SCH (19:00)
[2019-03-29 19:57] LABS: ABG BASE EXCESS 5.8 mmol/L (-2.0-2.0)
[2019-03-29 19:59] LABS: ABG HCO3 36.4 mmol/L (22-26)
[2019-03-29] MEDS: SNACK - Diabetic Appropriate PO SCH (20:32)
[2019-03-29] MEDS ORDERED: DOBUTAMINE HCL 1,000 MG in D5W 250 ML IV 170 ML IV PRN (21:16)
[2019-03-29] MEDS ORDERED: DIPRIVAN PREMIX 1 GRAM IV 1,000 MG/100 ML VIAL IV PRN (21:16)
[2019-03-29] MEDS ORDERED: DIPRIVAN PREMIX 1 GRAM IV 1,000 MG/100 ML VIAL ONE (21:21)
[2019-03-29] MEDS ORDERED: ALBUMIN HUMAN 25%- 100 ML 100 ML IV SCH (22:00)
[2019-03-29] MEDS ORDERED: ALBUMIN HUMAN 25% IV SCH (22:00)
[2019-03-29] MEDS ORDERED: VERSED ONE (22:08)
[2019-03-29] MEDS ORDERED: QUELICIN (OR ANECTINE) ONE (22:09)
[2019-03-29] MEDS ORDERED: VERSED IVP ONE (22:15)
[2019-03-29] MEDS ORDERED: QUELICIN (OR ANECTINE) IVP ONE (22:15)
[2019-03-29] MEDS: ZyrTEC TAB 10 MG PO SCH (23:34)
[2019-03-29] MEDS: LIPITOR TAB 10 MG PO SCH (23:41)
[2019-03-29] MEDS: AQUAPHOR TOP SCH (23:42)
[2019-03-29 23:51] VITALS: BP 169/74
== END 2019-03-29 22:40 | disposition expired | DRG 690 ==
LOC: MED/SURG 10:17 → ICU 03-29 19:32
PROVIDERS: ADMIT Internal Medicine; ATTEND Internal Medicine
DX: K21.9 Gastro-esophageal reflux disease without esophagitis; I11.0 Hypertensive heart disease with heart failure; E11.65 Type 2 diabetes mellitus with hyperglycemia; E87.5 Hyperkalemia; N17.8 Other acute kidney failure; N30.00 Acute cystitis without hematuria; B96.5 Pseudomonas (aeruginosa) (mallei) (pseudomallei) as the cause of diseases classified elsewhere; I50.9 Heart failure, unspecified; R26.89 Other abnormalities of gait and mobility; I46.9 Cardiac arrest, cause unspecified; R41.82 Altered mental status, unspecified; Z90.5 Acquired absence of kidney; N18.9 Chronic kidney disease, unspecified
CPT/HCPCS: 36415; 36600; 70450; 71010; 71045; 76770; 80053; 81001; 82550; 82553; 82803; 83605; 83735; 84484; 85025; 87040; 87070; 87077; 87086; 87088; 87186; 87205; 93005; 94640; 94660; 94760; A4222; J0330; J1650; J1940; J2250; J2405; J2543; J7030; J7050; J7620